=== PATIENT | male | born 1990 | race Caucasian/White ===

== ENCOUNTER 2020-11-27 22:25 | Emergency (ER) | payer OTHER, SELFPAY ==
[2020-11-27 22:27] VITALS: BP 132/86; PULSE 117; RESP 16; TEMP 36.2; O2SAT 97; BMI 27.8
--- NOTE | 2020-11-27 22:46 | ED.DCSUM_ITS ---
History of Present Illness Chief Complaint: General Illness Informant: Patient, Family Onset: Today Context: Gradual Onset Timing: Intermittent Current Severity: Mild Maximum Severity: Mild Narrative: The patient is a 30-year-old male who presents to the emergency department due to concern for car monoxide exposure. Patient states that he got home from work. He states that the furnace did not seem to be working. They had called someone out and found that there was a car monoxide leak. It was as high as 111 ppm at the furnace site. He had not been in the house for the bulk of the day. He states that he did feel mildly fatigued, but is unsure if it is just because he was very nervous. He had called poison control who recommended emergency department evaluation. Prior similar symptoms: No Recent Illness/Hospitalization: No Past Medical History - Allergies and Home Meds Allergies/Adverse Reactions: Allergies erythromycin base Allergy (Verified 11/27/20 22:29) Rash latex Allergy (Verified 11/27/20 22:29) Rash Primary Care Physician: Jhon Laird DO [STAFF PHYSICIAN] - Prior records reviewed: Yes Past Medical History: None Surgical History: noncontributory Review of Systems General: Denies: Chills, Fever, Sweats Eyes: Denies: Visual changes - bilaterally, Diplopia ENT: Denies: Rhinorrhea, Sore throat Cardiovascular: Denies: Chest pain, Palpitations Respiratory: Denies: Dyspnea, Cough, Dyspnea on exertion Gastrointestinal: Denies: Abdominal pain, Nausea, Vomiting, Diarrhea, Melena, Hematochezia Genitourinary: Denies: Dysuria, Hematuria, Frequency Musculoskeletal: Denies: Back pain, Extremity Pain Skin: Denies: Rash, Wounds Neurological: Denies: Headache, Weakness, Numbness Physical Exam Vital Signs/Narrative: Vital Signs Temp Pulse Resp BP Pulse Ox 11/27/20 22:27 97.2 F L 117 H 16 132/86 H 97 Inital Vital Signs reviewed: Yes General: Well nourished, Well developed, No Acute Distress Head: Normocephalic, Atraumatic Eyes: Perrl, EOMI ENT: Moist mucous membranes, No rhinorrhea Neck: Supple, Nontender Cardiovascular: Regular rate, Regular rhythm, No murmurs Respiratory: No distress, CTA bilaterally, Chest nontender Abdomen: Soft, Nontender, Nondistended, Normal bowel sounds Back: Nontender, Normal Inspection Extremities: Nontender, No edema Skin: Normal color, No rash Neurological: Alert, Oriented x3, Cranial nerves II-XII grossly intact, Normal Strength, Normal Sensation Psychological: Normal affect, Normal Mood Diagnostic/Tx/Re-eval - Medical Decision Making The patient was discussed promptly with poison control. They agreed with the 100% nonrebreather and obtaining serum carboxyhemoglobin levels. We did do the peripheral oximeter. The levels were 3. EKG was obtained which was unremarkable. Carboxyhemoglobin level was 2.4. The patient had already rec eived 1 hour of nonrebreather with a level that does not need to be treated. They are feeling fine. He has had no neurologic complaints. At this time, the patient is reassured and will be discharged home. All care was done in conjunction with poison control. Impression 1. Carbon monoxide exposure ED Disposition - Plan for ED Patient: Instructions: ED Carbon Monoxide Poisoning Referrals: Jhon Laird DO [STAFF PHYSICIAN] -
--- NOTE | 2020-11-27 23:22 | ED.RN ---
O2 sats 97%, CO2 3%. placed on NRB mask.
--- NOTE | 2020-11-27 23:26 | EKG12_ITS ---
Test Reason : DYSRYTHMIA Blood Pressure : / mmHG Vent. Rate : 086 BPM Atrial Rate : 086 BPM P-R Int : 172 ms QRS Dur : 084 ms QT Int : 352 ms P-R-T Axes : 064 046 037 degrees QTc Int : 421 ms Normal sinus rhythm Normal ECG Confirmed by KIRBY DUMAS, LEONOR ([id number]), fan mail editor GENO DAUGHERTY ([id number]) on 11/30/2020 12:18:21 PM Referred By: MANDI Confirmed By:CHAIM ORR MD
[2020-11-27 23:42] LABS: Carboxyhemoglobin Frac (CO) 2.4 % (0.0-1.5)
== END 2020-11-28 00:08 | disposition home or self-care (01) ==
PROVIDERS: Emergency Provider Emergency Medicine
DX: Z57.5 Occupational exposure to toxic agents in other industries (principal); Z88.1 Allergy status to other antibiotic agents; Z91.040 Latex allergy status
CPT/HCPCS: 36415; 82375; 93005; 99282

== ENCOUNTER 2022-02-02 18:33 | Emergency (ER) | payer BC, SELFPAY ==
[2022-02-02 18:34] VITALS: BP 121/74; PULSE 104; RESP 18; TEMP 37.6; O2SAT 98; BMI 29.1
[2022-02-02 19:21] LABS: Absolute Lymphocyte Count 0.75 X10^3/uL (0.83-4.51); Basophil# 0.02 X10^3/uL; Basophil% 0.3 % (0-1); Eosinophil# 0.01 X10^3/uL; Eosinophils% 0.1 % (0-5); Hematocrit 43.6 % (40-54); Hemoglobin 15.8 g/dL (13.0-16.5); Lymphocyte # 0.75 X10^3/ul (0.83-4.51); Lymphocyte % 10.4 % (19-41); Mean Corp Hgb Conc 36.2 g/dL (32-36); Mean Corpuscular Hgb 30.6 pg (27.0-32.0); Mean Corpuscular Volume 84.5 fL (80-94); Mean Platelet Vol. 11.9 fl (6.2-12.0); Monocyte# 0.36 X10^3/uL; NRBC Flagged by Analyzer 0 % (0-5); Neutrophil # 6.03 X10^3/uL (2.7-7.7); Neutrophil % 83.8 % (47-70); POSITIVE COUNT YES; Platelet Count 86 K/mm3 (150-450); RBC Distribution Width CV 11.8 % (11.6-14.6); RBC Distribution Width SD 35.8 fl (35.1-43.9); Red Blood Count 5.16 M/mm3 (4.6-6.2); White Blood Count 7.2 K/mm3 (4.4-11.0)
[2022-02-02 19:50] LABS: Differential Indicated SCAN CRITERIA MET
[2022-02-02 19:52] LABS: ALB/GLOB Ratio 1.2 RATIO (0.9-2.4); AST(SGOT) 17 U/L (15-37); Alanine Aminotransfer ALT/SGPT 47 U/L (16-61); Alkaline Phosphatase 75 U/L (45-117); Anion Gap 4 (5-15); BUN 7 mg/dL (7-18); BUN/Creat Ratio 6.9 RATIO (10-20); Calcium,Total 8.9 mg/dL (8.5-10.1); Chloride 106 mmol/L (98-107); Creatinine, Serum 1.02 mg/dL (0.70-1.30); EST Glomerular Filtration Rate 90 mL/min (>60); Est Glom Filt Rate - Afr Amer 109 mL/min (>60); Estimated Creatinine Clearance 115.17 ml/min; Globulin 3.3 g/dL (2.2-4.2); Glucose 121 mg/dL (74-106); Potassium 3.3 mmol/L (3.5-5.1); Protein, Total 7.3 g/dL (6.4-8.2); Sodium Level 135 mmol/L (136-145)
[2022-02-02 19:53] LABS: Platelet Estimate MOD DEC (ADEQ); Red Cell Morphology NORM C+C NORMAL (NORM C&C)
[2022-02-02 20:11] VITALS: TEMP 39.5
--- NOTE | 2022-02-02 20:45 | EDS_ITS ---
HPI History of Present Illness Chief Complaint: General Illness Informant: patient Narrative Narrative: Patient is a 31-year-old male with history of prior low back surgery presenting with fever, chills, myalgias and URI symptoms. Patient states he was feeling okay yesterday but had a little bit of a sore throat. He woke up today and felt he could not move because he felt so bad. He had aches, all of her myalgias and chills. His had a fever. Had some nasal congestion for the past 2 days. Said some nausea but no vomiting. His bowel movements been soft. He went to urgent care where he had a near syncopal episode and was sent to the emergency room for further evaluation. Patient notes his 3-year-old daughter has had a runny nose at home. No other known sick contacts. No other complaints at this time. PFSH PFSH Home Medications cetirizine [Zyrtec] 10 mg PO DAILY 02/02/22 [History Last Taken Unknown] Allergy/AdvReac Type Severity Reaction Status Date / Time erythromycin base Allergy Rash Verified 11/27/20 22:29 latex Allergy Rash Verified 11/27/20 22:29 Surgical History History of bladder surgery Previous back surgery Social History Smoking Status: Never smoker ROS ROS ED Constitutional Constitutional ED: Reports chills and fever(s) Eyes Eyes: Denies change in vision ENT ENT ED: Reports rhinorrhea, sore throat and other Details: Nasal congestion Cardiovascular Cardiovascular: Denies chest pain Respiratory/Chest Respiratory/Chest: Reports cough; Denies dyspnea Gastrointestinal Gastrointestinal: Reports diarrhea and nausea; Denies abdominal pain or vomiting Genitourinary Genitourinary ED: Denies dysuria or hematuria Musculoskeletal Musculoskeletal: Reports arthralgias and myalgias Integumentary Denies rash Neurologic Neurologic: Denies headache(s) or weakness Psychiatric Psychiatric: Denies depression EXAM Physical Exam Const Vital Signs: 02/02/22 18:34 02/02/22 20:08 02/02/22 20:11 Temperature 99.7 F H 103.1 F H Temperature Source Temporal Oral Pulse Rate 104 H Respiratory Rate 18 Respiratory Effort Normal Non-Labored Respiratory Pattern Normal Blood Pressure 121/74 H Blood Pressure Mean 89 Pulse Ox 98 Oxygen Delivery Method Room Air 02/02/22 22:13 Temperature 99.7 F H Temperature Source Oral Pulse Rate Respiratory Rate Respiratory Effort Respiratory Pattern Blood Pressure Blood Pressure Mean Pulse Ox Oxygen Delivery Method Positive well nourished and well developed General Appearance ED: well developed HEENT Reports moist mucous membranes HEENT Narrative: Mild pharyngeal injection. Normal-sized tonsils. No exudate appreciated. Uvula is midline. Eyes PERRL and EOMs intact bilaterally Eyes Narrative: No conjunctival injection appreciated Neck supple Neck Narrative: Mild cervical chain lymphadenopathy present General: Negative for tenderness Chest Wall inspection of chest normal Resp normal respiratory effort and clear to auscultation bilaterally Cardio regular rate, regular rhythm and no murmurs GI normal to inspection, nondistended, normoactive bowel sounds Back/Spine no CVA tenderness Extremity normal to inspection General Extremety ED: Negative for edema or tenderness General Extremity: Negative for edema Neuro oriented x3 Sensorium / Orientation: alert Psych mental status grossly normal Skin no rashes or lesions noted and no wounds MDM MDM MDM Narrative Medical decision making narrative: Patient evaluated for flulike illness as well as a near syncopal episode at urgent care. Patient is given IV fluids and IV Toradol. On reevaluation he does feel better. Lab work largely unremarkable. I suspect he has some type of viral illness given his physical exam and history of present illness. He is mildly hypokalemic and is given a dose of oral potassium in the emergency room. Is counseled on symptomatic treatment including lots of fluids and alternating Tylenol and ibuprofen as needed for pain. He does not have any meningeal signs. Otherwise is well-appearing. Clear breath sounds I do not think chest x-ray is indicated. Significantly improved on repeat evaluation. Discharged home with outpatient follow-up. Is given a work note for the next few days and counseled he needs to stay home until he is afebrile for 24 hours. Lab Data Attestation: I reviewed the patient's lab results. Labs: Laboratory Results - last 24 hr 02/02/22 02/02/22 18:20 18:20 WBC 7.2 RBC 5.16 Hgb 15.8 Hct 43.6 MCV 84.5 MCH 30.6 MCHC 36.2 H RDW Std Deviation 35.8 RDW Coeff of Yo 11.8 Plt Count 86 L MPV 11.9 Immature Gran % (Auto) 0.400 Neut % (Auto) 83.8 H Lymph % (Auto) 10.4 L [place] % (Auto) 5.0 Eos % (Auto) 0.1 Baso % (Auto) 0.3 Absolute Neuts (auto) 6.0 Absolute Lymphs (auto) 0.75 L Nucleated RBC % 0 Platelet Estimate MOD DEC RBC Morphology NORM C+C Sodium 135 L Potassium 3.3 L Chloride 106 Carbon Dioxide 25.0 Anion Gap 4 L BUN 7 Creatinine 1.02 Estim Creat Clear Calc 115.17 Est GFR (MDRD) Af Amer 109 Est GFR (MDRD) Non-Af 90 BUN/Creatinine Ratio 6.9 L Glucose 121 H Calcium 8.9 Total Bilirubin 0.80 AST 17 ALT 47 Alkaline Phosphatase 75 Total Protein 7.3 Albumin 4.0 Globulin 3.3 Albumin/Globulin Ratio 1.2 Discharge Plan Triage Chief Complaint: General Illness ED Provider: Li Lakhani Dx/Rx/DC Orders Clinical Impression: Acute febrile illness, URI (upper respiratory infection) Instructions: ED URI, Viral, No Abx (Adult) Prescriptions: No Action cetirizine [Zyrtec] 10 mg Tablet 10 mg PO DAILY RF: 0 Stand Alone Forms: ED Work / School Excuse Primary Care Provider: Care Physician,No Primary Referrals: Jonah Bruno MD [STAFF PHYSICIAN] - Care Physician,No Primary [Primary Care Provider] - Activity Restrictions/Additional Instructions: Drink lots of fluids. Alternate Tylenol and ibuprofen. Return the emergency room if you have worsening symptoms especially headache, neck stiffness, rash or fever that will not resolve/improve with [id number] medicines. He may take [id number] Tylenol Cold and flu for your symptoms as well. Disposition Disposition: Home, Self Care Discharge Date/Time: 02/02/22 23:03
[2022-02-02] MEDS: Ketorolac 15 MG/ML Vial IV (20:53)
[2022-02-02] MEDS: 0.9% Normal Saline 1,000 ML 999 ML IV (20:54)
[2022-02-02] MEDS: Potassium Chloride Oral Tablet 20 MEQ 40 MEQ PO (22:02)
[2022-02-02 22:13] VITALS: TEMP 37.6
== END 2022-02-02 23:03 | disposition home or self-care (01) ==
PROVIDERS: Emergency Provider Emergency Medicine; Visit Provider Emergency Medicine
DX: J06.9 Acute upper respiratory infection, unspecified (principal); M79.10 Myalgia, unspecified site; R50.9 Fever, unspecified
CPT/HCPCS: 80053; 85025; 87428; 87880; 96361; 96374; 99283

== ENCOUNTER 2024-06-12 16:53 | Emergency (ER) | payer BC, SELFPAY ==
[2024-06-12 16:54] VITALS: BP 143/101; PULSE 84; RESP 17; TEMP 36.1; O2SAT 96; BMI 27.4
--- NOTE | 2024-06-12 17:33 | CT_ITS ---
EXAM: CT ABDOMEN AND PELVIS WITHOUT INTRAVENOUS CONTRAST CLINICAL INDICATION: hx of kidney stones TECHNIQUE: Helically acquired images were obtained of the abdomen and pelvis without intravenous contrast. This CT exam was performed using one or more of the following dose reduction techniques: automated exposure control, adjustment of the mA and/or kV according to patient size, and/or use of iterative reconstruction technique. COMPARISON: No relevant prior studies available. FINDINGS: LOWER THORAX: Unremarkable. Lung bases are clear. No cardiomegaly. No significant pericardial effusion. ABDOMEN: LIVER: Unremarkable. Homogeneous. GALLBLADDER AND BILE DUCTS: Unremarkable. No calcified gallstones. No gallbladder distention or wall edema. No intra- or extrahepatic biliary ductal dilation. PANCREAS: Unremarkable. No focal cystic mass. SPLEEN: Unremarkable. Normal size without focal cystic or solid mass. ADRENALS: Unremarkable. No nodules. KIDNEYS AND URETERS: There are nonobstructing calyceal stones bilaterally. Normal renal size and position. STOMACH AND BOWEL: Unremarkable. No stomach or bowel distention. No focal inflammatory change. PELVIS: APPENDIX: No evidence of acute appendicitis. BLADDER: Unremarkable. REPRODUCTIVE: Unremarkable as visualized. No mass. ABDOMEN and PELVIS: INTRAPERITONEAL SPACE: Unremarkable. No ascites or other fluid collection. No free air. BONES/JOINTS: Unremarkable. No suspicious lytic or blastic abnormality. SOFT TISSUES: Unremarkable. No discrete abdominal or pelvic wall hernia. VASCULATURE: Unremarkable. Abdominal aorta is non-dilated. LYMPH NODES: Unremarkable. No enlarged lymph nodes. 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 No obvious ureteral stone is identified. There are bilateral nonobstructing calyceal stones present. Electronically Signed: Amadeo Jones MD at 18:39 EDT ,
[2024-06-12] MEDS: 0.9% Normal Saline (1000mL) 1,000 ML 999 ML IV (17:47)
[2024-06-12 17:48] LABS: Absolute Lymphocyte Count 1.69 X10^3/uL (0.83-4.51); Absolute Neutrophil Count 3.4 X10^3/uL (2.0-7.7); Basophil# 0.04 X10^3/uL; Basophil% 0.7 % (0-1); Eosinophil# 0.21 X10^3/uL; Eosinophils% 3.7 % (0-5); Hematocrit 46.7 % (40-54); Hemoglobin 16.5 g/dL (13.0-16.5); Lymphocyte # 1.69 X10^3/ul (0.83-4.51); Lymphocyte % 29.8 % (19-41); Mean Corp Hgb Conc 35.3 g/dL (32-36); Mean Corpuscular Hgb 30.8 pg (27.0-32.0); Mean Corpuscular Volume 87.1 fL (80-94); Monocyte# 0.34 X10^3/uL; NRBC Flagged by Analyzer 0 % (0-5); Neutrophil # 3.39 X10^3/uL (2.7-7.7); Neutrophil % 59.6 % (47-70); Platelet Count 112 K/mm3 (150-450); RBC Distribution Width CV 12.1 % (11.6-14.6); RBC Distribution Width SD 38.5 fl (35.1-43.9); Red Blood Count 5.36 M/mm3 (4.6-6.2); White Blood Count 5.7 K/mm3 (4.4-11.0)
[2024-06-12 17:49] LABS: Bacteria 0 SEEN /hpf (None Seen); Mucous, Urine 0 SEEN /hpf (<or=2+); Red Blood Cells-Urine 0 SEEN /hpf (0-5); Squamous Epithelial Cells - UA 0 SEEN /hpf (0-5); White Blood Cells 0 SEEN /hpf (0-5)
[2024-06-12 17:59] LABS: Color, Urine Yellow (Yellow); Glucose, Dipstick Normal (Normal); Ketone-Dipstick Negative (Negative); Leukocyte Esterase-Dipstick Negative /ul (Negative); Nitrite-Dipstick Negative (Negative); Occult Blood-Urine Negative /ul (Negative); Protein-Dipstick Negative (Negative); Specific Gravity, Urine 1.015 (1.002-1.030); Urine Bilirubin Dipstick Negative (Negative); Urine Clarity Clear (Clear); Urine Urobilinogen Normal (Normal)
[2024-06-12 18:12] LABS: ALB/GLOB Ratio 1.3 RATIO (0.9-2.4); AST(SGOT) 19 U/L (15-37); Alanine Aminotransfer ALT/SGPT 43 U/L (16-61); Albumin, Serum 4.2 g/dL (3.2-5.0); Alkaline Phosphatase 78 U/L (45-117); Anion Gap 5 (5-15); BUN 11 mg/dL (7-18); BUN/Creat Ratio 12.1 RATIO (10-20); Calcium,Total 9.3 mg/dL (8.5-10.1); Chloride 107 mmol/L (98-107); Creatinine, Serum 0.91 mg/dL (0.70-1.30); EST Glomerular Filtration Rate 101 mL/min (>60); Est Glom Filt Rate - Afr Amer 122 mL/min (>60); Estimated Creatinine Clearance 125.54 ml/min; Globulin 3.3 g/dL (2.2-4.2); Glucose 95 mg/dL (74-106); Lipase 30 U/L (13-75); Potassium 3.5 mmol/L (3.5-5.1); Protein, Total 7.5 g/dL (6.4-8.2); Sodium Level 139 mmol/L (136-145)
[2024-06-12 18:54] VITALS: BP 138/99; PULSE 81; RESP 16; O2SAT 100
[2024-06-12 20:00] VITALS: BP 122/79; PULSE 70; RESP 16; O2SAT 99
[2024-06-12 20:13] VITALS: BP 122/79; PULSE 68; RESP 19; TEMP 36.6; O2SAT 99
--- NOTE | 2024-06-12 20:13 | EDS_ITS ---
HPI History of Present Illness Chief Complaint: Flank Pain Narrative Narrative: Patient is a 34-year-old male with past medical history of nephrolithiasis, urolithiasis who presents to the emergency department with a concern for a kidney stone. According to the patient he states that he has been dealing with some discomfort now for approximately 2 weeks he states that he felt like he had a kidney stone and figured that it passed on its own. He states that he has been trying to hydrate orally with plenty of fluids. Patient states that he recently has had some chills and shaking and noted that he had some painful urination prompting him to come here for further evaluation management. Patient states that he has had several kidney stones in the past he states that he has passed some on his own and noted that he had to have surgery in the past to have some removed as well. Patient denies any recent sick contacts. He states that this does feel like he has another kidney stone. PFSH PFS Medical History Hx of renal calculi Home Medications ?Medication ?Instructions ?Recorded ?Last Taken ?Type cetirizine 10 mg tablet (Zyrtec) 10 mg PO DAILY PRN allergy symptoms 02/02/22 Unknown History Allergy/AdvReac Type Severity Reaction Status Date / Time erythromycin base Allergy Rash Verified 06/12/24 16:54 latex Allergy Rash Verified 06/12/24 16:54 Surgical History Previous back surgery History of bladder surgery Social History Smoking Status: Never smoker ROS ROS ED ROS Narrative Constitutional: Complains of chills denies any fevers, headaches, lightheadedness, dizziness Cardiovascular: Denies chest pain or palpitations Respiratory: Denies coughing wheezing shortness of breath Abdomen: Complains of some generalized abdominal discomfort and denies any vomiting or diarrhea : States that he does have some pain with urination denies any increased frequency of urinating denies blood in his urine Neurological: Denies any numbness, weakness, tingling Musculoskeletal: Complains of some bilateral back discomfort Skin: Denies rashes or lesions EXAM Physical Exam Narrative Exam Narrative: General: Patient was lying in bed rest comfortably did not appear to be in acute distress Head: Atraumatic, normocephalic Eyes: PERRL bilaterally, EOMI bilaterally, no conjunctival injection noted Neck: Soft, supple, trach midline Cardiovascular: Regular rate and rhythm no murmurs gallops rubs noted Respiratory: Clear to auscultation bilaterally Abdomen: Soft, nondistended, no tenderness palpation, bowel sounds present x 4 Musculoskeletal: No CVA tenderness noted on exam, no midline tenderness palpation thoracolumbar spine Extremities: +5/5 strength noted in the bilateral upper and lower extremities, no pedal edema on exam Neurological: Patient was following commands knew that he was at [facility] year is 2023 Skin: Warm, dry, intact Const Vital Signs: 06/12/24 16:54 06/12/24 18:54 06/12/24 20:00 Temperature 96.9 F L Temperature Source Temporal Pulse Rate 84 81 70 Respiratory Rate 17 16 16 Blood Pressure 143/101 H 138/99 H 122/79 H Blood Pressure Mean 115 112 93 Pulse Ox 96 100 99 Oxygen Delivery Method Room Air Room Air Room Air MDM MDM MDM Narrative Medical decision making narrative: Patient is a 34-year-old male who presented to the emergency department with chief complaint of concern for kidney stone. Patient will have a workup performed here on the differential diagnose includes but not limited to urolithiasis, nephrolithiasis, UTI, pyelonephritis. Once workup is obtained reviewed he will be reevaluated. Patient was offered pain medication and states that he does not need anything for pain or nausea at this point in time. Patient's CBC reviewed and showed no evidence of leukocytosis white blood cell count normal at 5.7, hemoglobin stable at 16.5, platelet count was noted to be 112 chronically has low platelets based on previous blood draws. Patient sodium normal at 139, potassium normal at 3.5, creatinine normal at 0.91. Patient's AST and ALT were 19 and 43 respectively. Patient lipase normal at 30. Patient's urinalysis did not reveal any evidence of infection no blood noted. Patient CT abdomen pelvis without IV contrast reviewed and showed a duplicated left collecting system with mild dilation of the left lower pole. No obvious ureteral stone is identified there are bilateral nonobstructing calyceal stones present. On reevaluation of the patient he is feeling better. Patient's results were discussed with him he would like to go home at this point time. Patient states that he does have a follow-up appointment with urology on Monday. Patient was advised to follow-up with them and also follow-up with his primary care physician outpatient setting. He was encouraged to return with worsening symptoms or other concerns. Patient and family member at bedside are agreeable with this plan all question concerns answered he is discharged home in stable condition. Lab Data Labs: Laboratory Results - last 24 hr 06/12/24 06/12/24 17:08 17:45 WBC 5.7 RBC 5.36 Hgb 16.5 Hct 46.7 MCV 87.1 MCH 30.8 MCHC 35.3 RDW Std Deviation 38.5 RDW Coeff of Yo 12.1 Plt Count 112 L MPV 13.0 H Immature Gran % (Auto) 0.200 Neut % (Auto) 59.6 Lymph % (Auto) 29.8 [place] % (Auto) 6.0 Eos % (Auto) 3.7 Baso % (Auto) 0.7 Absolute Neuts (auto) 3.4 Absolute Lymphs (auto) 1.69 Nucleated RBC % 0 Sodium 139 Potassium 3.5 Chloride 107 Carbon Dioxide 27.0 Anion Gap 5 BUN 11 Creatinine 0.91 Estim Creat Clear Calc 125.54 Est GFR (MDRD) Af Amer 122 Est GFR (MDRD) Non-Af 101 BUN/Creatinine Ratio 12.1 Glucose 95 Calcium 9.3 Total Bilirubin 0.40 AST 19 ALT 43 Alkaline Phosphatase 78 Total Protein 7.5 Albumin 4.2 Globulin 3.3 Albumin/Globulin Ratio 1.3 Lipase 30 Urine Color Yellow Urine Clarity Clear Urine pH 6.0 Ur Specific [place] 1.015 Urine Protein Negative Urine Glucose (UA) Normal Urine Ketones Negative Urine Occult Blood Negative Urine Nitrite Negative Urine Bilirubin Negative Urine Urobilinogen Normal Ur Leukocyte Esterase Negative Urine RBC 0 SEEN Urine WBC 0 SEEN Ur Squamous Epith Cells 0 SEEN Urine Bacteria 0 SEEN Urine Mucus 0 SEEN Radiography Diagnostic Testing: Clinical Impression(s) from Imaging Studies Abdomen/Pelvis CT 06/12/24 17:33 IMPRESSION: 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 No obvious ureteral stone is identified. There are bilateral nonobstructing calyceal stones present. Electronically Signed: Amadeo Jones MD at 18:39 EDT , Discharge Plan Triage Chief Complaint: Flank Pain ED Provider: [place] Dx/Rx/DC Orders Clinical Impression: Flank pain with history of urolithiasis Prescriptions: No Action cetirizine [Zyrtec] 10 mg Tablet 10 mg PO DAILY PRN (Reason: allergy symptoms) Primary Care Provider: Calli Santamaria Referrals: Calli Santamaria DO [Primary Care Provider] - Activity Restrictions/Additional Instructions: Ensure adequate hydration. Follow-up with your urologist on Monday at your scheduled appointment. Follow-up with your primary care physician outpatient setting. Return with worsening symptoms or other concerns. Print Language: Macedonian Disposition Disposition: Home, Self Care
== END 2024-06-12 20:39 | disposition home or self-care (01) ==
PROVIDERS: Emergency Provider Emergency Medicine; PCP Internal Medicine; Visit Provider Emergency Medicine
DX: R10.9 Unspecified abdominal pain (principal)
CPT/HCPCS: 74176; 80053; 81001; 83690; 85025; 96360; 99283; J7030; A4216

== ENCOUNTER 2024-12-13 09:21 | Outpatient (RCR) | payer BC, SELFPAY | END 2024-12-13 19:00 | disposition home or self-care (01) | LOC: PT 09:21 | PROVIDERS: PCP Internal Medicine | DX: M25.561 Pain in right knee (principal) ==

== ENCOUNTER → 2025-09-23 | Outpatient (CLI) | payer BC, SELFPAY ==
--- OUTSIDE RECORDS SUMMARY | 2025-09-23 09:29 | XMS RPT_ITS | CCD ---
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 removed at age [age] PMH - PAST MEDICAL HISTORY OF Hernia Repair PMH - PAST MEDICAL HISTORY OF 03/01 T AND A PAST SURGICAL HISTORY Procedure Laterality Date ADENOIDECTOMY PRIMARY Adenoidectomy PAST SURGICAL HISTORY OF BLADDER RECONSTRUCTIVE SURG TONSILLECTOMY PRIMARY/SECONDARY Tonsillectomy ALLERGIES Erythromycin, Erythromycin Base, Latex, Nickel, Azithromycin, and Tree Nut MEDICATIONS No prescriptions on file. FAMILY HISTORY Problem Relation Age of Onset Cancer Maternal Grandmother liver and kidney Hearing Loss Paternal Grandmother Hearing Loss Father Heart Paternal Grandmother [place] Heart Paternal Grandfather [place] Social History Tobacco Use Smoking status: Never Passive exposure: Past Smokeless tobacco: Never Substance Use Topics Alcohol use: No Drug use: No Review of Systems Constitutional: Positive for fever and malaise/fatigue. Negative for chills. HENT: Positive for congestion and sore throat. Negative for ear discharge, ear pain and nosebleeds. Eyes: Positive for discharge and redness. Negative for blurred vision, double vision, photophobia and pain. Respiratory: Positive for cough. Negative for shortness of breath and wheezing. Musculoskeletal: Negative for neck pain. Skin: Negative for itching and rash. Neurological: Negative for headaches. Objective Blood pressure 122/78, pulse 96, temperature 37.5 ?C (99.5 ?F), temperature source Tympanic, resp. rate 16, weight 91.1 kg (200 lb 13.4 oz), SpO2 97%. Physical Exam Constitutional: General: He is not in acute distress. Appearance: He is not toxic-appearing or diaphoretic. HENT: Head: Normocephalic and atraumatic. Right Ear: Hearing, tympanic membrane, ear canal and external ear normal. Left Ear: Hearing, tympanic membrane, ear canal and external ear normal. Nose: Nose normal. No mucosal edema. Mouth/Throat: Lips: [place]. Pharynx: Uvula midline. Posterior oropharyngeal erythema (uvulitis.) present. No pharyngeal swelling, oropharyngeal exudate or uvula swelling. Eyes: General: Lids are normal. No scleral icterus. Right eye: No discharge. Left eye: Discharge present. Conjunctiva/sclera: Left eye: Left conjunctiva is injected. Exudate present. Pupils: Pupils are equal, round, and reactive to light. Neck: Trachea: Trachea normal. Cardiovascular: Rate and Rhythm: Normal rate and regular rhythm. Heart sounds: Normal heart sounds. Pulmonary: Effort: Pulmonary effort is normal. Breath sounds: Normal breath sounds. Musculoskeletal: Cervical back: Normal range of motion and neck supple. Lymphadenopathy: Cervical: Cervical adenopathy present. Right cervical: Superficial cervical adenopathy present. Left cervical: Superficial cervical adenopathy present. Comments: No cervical lymphadenopathy bilaterally Skin: Findings: No rash. Neurological: Mental Status: He is alert and oriented to person, place, and time. ASSESSMENT/PLAN: 1. Community acquired pneumonia, unspecified laterality - ICD9: 486, ICD10: J18.9 (primary diagnosis) Start amox, if s/s worsen or continue fill doxy atb - Discussed supportive care - Limit exposure to smoke and other inhaled irritants - Discussed possible red flags and when to seek medical attention - Follow up in 3-5 days or sooner if no better or worse -If you experience chest pain/shortness of breath go to ER - AMOXICILLIN 500 MG CAPSULE - DOXYCYCLINE MONOHYDRATE 100 MG TABLET 2. Acute cough - ICD9: 786.2, ICD10: R05.1 - XR CHEST 2V FRONTAL/LAT IMPRESSION: Mild opacities in the lingula or right middle lobe, pulmonary infiltrates versus atelectasis. Consider follow-up. Dictated by : WILLIAM MORRIS MD 3. So (more content not included)... [facility] STREP A MOLECULAR (POC)on Procedural Control Valid [facility] Strep A (POCT) Negative Negative [facility] ic XR CHEST 2V FRONTAL/LATon XR CHEST 2V FRONTAL/LAT * * *Final Report* * * DATE OF EXAM: Oct 01 2024 12:31PM WOX 5291 - XR CHEST 2V FRONTAL/LAT / PROCEDURE REASON: Acute cough * * * * Physician Interpretation * * * * EXAMINATION: CHEST RADIOGRAPH (2 VIEW FRONTAL and LATERAL) CLINICAL HISTORY: Acute cough MQ: XC2_6 EXAM DATE/TIME: 10/01/2024 12:31 PM COMPARISON: Chest x-ray on 07/29/2024 RESULT: Lines, tubes, and devices: None. Lungs and pleura: Mild patchy opacities seen in the lingula or right middle lobe, only appreciated on lateral view. No lung mass. No pleural effusion. No pneumothorax. Cardiomediastinal silhouette: Normal cardiomediastinal silhouette. Bones and soft tissues: Unremarkable. IMPRESSION: Mild opacities in the lingula or right middle lobe, pulmonary infiltrates versus atelectasis. Consider follow-up. [facility] Transcribe Date/Time: Oct 01 2024 12:35P Dictated by : WILLIAM MORRIS MD This examination was interpreted and the report reviewed and electronically signed by: WILLIAM MORRIS MD on Oct 01 2024 12:36PM EST [id number] [facility] XR Chest PA and Lateralon IMPRESSION: Mild opacities in the lingula or right middle lobe, pulmonary infiltrates versus atelectasis. Consider follow-up. Machinist Set Up: [facility] Transcribe Date/Time: Oct 01 2024 12:35P Dictated by : WILLIAM MORRIS MD This examination was interpreted and the report reviewed and electronically signed by: WILLIAM MORRIS MD on Oct 01 2024 12:36PM EST DIVISION OF RADIOLOGY * * *Final Report* * * DATE OF EXAM: Oct 01 2024 12:31PM WOX 5291 - XR CHEST 2V FRONTAL/LAT / PROCEDURE REASON: Acute cough * * * * Physician Interpretation * * * * EXAMINATION: CHEST RADIOGRAPH (2 VIEW FRONTAL & LATERAL) CLINICAL HISTORY: Acute cough MQ: XC2_6 EXAM DATE/TIME: 10/01/2024 12:31 PM COMPARISON: Chest x-ray on 07/29/2024 RESULT: Lines, tubes, and devices: None. Lungs and pleura: Mild patchy opacities seen in the lingula or right middle lobe, only appreciated on lateral view. No lung mass. No pleural effusion. No pneumothorax. Cardiomediastinal silhouette: Normal cardiomediastinal silhouette. Bones and soft tissues: Unremarkable. DIVISION OF RADIOLOGY Provider, Arianna Guzman - 10/01/2024 * * *Final Report* * * DATE OF EXAM: Oct 01 2024 12:31PM WOX 5291 - XR CHEST 2V FRONTAL/LAT / PROCEDURE REASON: Acute cough * * * * Physician Interpretation * * * * EXAMINATION: CHEST RADIOGRAPH (2 VIEW FRONTAL & LATERAL) CLINICAL HISTORY: Acute cough MQ: XC2_6 EXAM DATE/TIME: 10/01/2024 12:31 PM COMPARISON: Chest x-ray on 07/29/2024 RESULT: Lines, tubes, and devices: None. Lungs and pleura: Mild patchy opacities seen in the lingula or right middle lobe, only appreciated on lateral view. No lung mass. No pleural effusion. No pneumothorax. Cardiomediastinal silhouette: Normal cardiomediastinal silhouette. Bones and soft tissues: Unremarkable. IMPRESSION IMPRESSION: Mild opacities in the lingula or right middle lobe, pulmonary infiltrates versus atelectasis. Consider follow-up. Machinist Set Up: [facility] Transcribe Date/Time: Oct 01 2024 12:35P Dictated by : WILLIAM MORRIS MD This examination was interpreted and the report reviewed and electronically signed by: WILLIAM MORRIS MD on Oct 01 2024 12:36PM EST [facility] Radiology Study observation (narrative) [facility] XR Chest PA and LateralOrder ed By: Cc Provider on 10-01-2024 [facility] 07[facility]30-20[facility]) KINGSLEY LUIS ([id number]) 1990 M Date Time Provider Department 07/30/[address] [facility] During your visit today, we recorded the following information about you: Pearl Rincon APRN.VEL 07/30/2024 7:19 AM Signed Negative for COVID, flu, RSV. Please notify. Melissa Park MA 07/30/2024 8:03 AM Signed Unable to reach patient. Left VM to return call to office. Please read below and advise. Melissa Park MA (Please see Spouse (1) AND child (2) results also) Will need documentation for Spouse in regards to results. Irene Barlow RN 07/30/2024 8:14 AM Signed Spouse calls with patient and notified of results with verbalized understanding. Irene Barlow RN Allergies As of Date: 07/30/2024 Noted Allergy Reaction ERYTHROMYCIN 04/21/2020 2 - Rash ERYTHROMYCIN BASE 11/27/2020 2 - Rash LATEX 03/08/2006 2 - Rash NICKEL 05/04/2018 2 - Rash Comments: GI upset when eating canned foods AZITHROMYCIN 04/23/2016 2 - Rash TREE NUT 05/04/2018 2 - Rash 7 - Swelling Date Reviewed: 07/29/2024 Reviewed by: Rach Paredes MA - Fully Assessed Reason for Visit: Results [95] Prescriptions as of 07/30/2024 - doxycycline (VIBRA-TABS) 100 mg tablet Take 1 tablet by mouth two times a day for 7 days. Problem List As Of Date: 07/30/2024 (None) Encounter Status:Closed by IRENE BARLOW on 07/30/24 [facility] CNOVon 07-29-2024 CNOV Office Visit (UCWSTR ) KINGSLEY LUIS ([id number]) 1990 M Date Time Provider Department 07/29/24 5:00 PM [address]ANT [facility] During your visit today, we recorded the following information about you: Temperature Pulse Respiration Blood pressure 99.6 degrees 94/minute 21/minute 110/80 Weight 90 kg Pearl Rincon APRN.[employer] 07/29/2024 6:42 PM Signed CC: Patient presents with: Cough: Chest congestion, vomiting, nausea, diarrhea, CERVANTES, fever x 5 days HPI: Kingsley Luis is a 34 year old male who presents to the office with complaint of chest congestion, head congestion, cough, nonproductive, and fever for 5 days. Symptoms are staying the same. Associated symptoms includes nausea, vomiting , and diarrhea. Denies ear pain. Treatments tried include nothing so far. with no relief of symptoms. Sick contacts: unknown. History of asthma, frequent episodes of bronchitis, chronic bronchitis, bronchiectasis or COPD: No Smoker: No Seasonal/environmental allergies: No The ROS is otherwise negative. The patient's pmh, medications, allergies, and past visits are reviewed. PHYSICAL EXAM: BP 110/80 Pulse 94 Temp 37.6 ?C (99.6 ?F) Resp 21 Wt 90 kg (198 lb 6.6 oz) SpO2 97% General appearance: alert, cooperative, pleasant, in no acute distress Head: Normocephalic Eyes: EOM's intact, conjunctiva pink and moist, no icterus, sclera white, non-injected Ears: Right ear: External ear/canal- Normal, TM - clear with good landmarks. Left ear: External ear/canal- Normal, TM - clear with good landmarks Oropharynx:mild erythema, without exudates present Heart: Negative. RRR without obvious murmur, gallop, or rubs. No ectopy. 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 PMH - PAST MEDICAL HISTORY OF Cyst over right eye removed at age [age] PMH - PAST MEDICAL HISTORY OF Hernia Repair PMH - PAST MEDICAL HISTORY OF 03/01 T AND A PAST SURGICAL HISTORY Procedure Laterality Date ADENOIDECTOMY PRIMARY Adenoidectomy PAST SURGICAL HISTORY OF BLADDER RECONSTRUCTIVE SURG TONSILLECTOMY PRIMARY/SECONDARY Tonsillectomy ALLERGIES Erythromycin, Erythromycin Base, Latex, Nickel, Azithromycin, and Tree Nut MEDICATIONS No prescriptions on file. FAMILY HISTORY Problem Relation Age of Onset Cancer Maternal Grandmother liver and kidney Hearing Loss Paternal Grandmother Hearing Loss Father Heart Paternal Grandmother [place] Heart Paternal Grandfather [place] Social History Tobacco Use Smoking status: Never Passive exposure: Past Smokeless tobacco: Never Substance Use Topics Alcohol use: No Drug use: No ASSESSMENT/PLAN: 1. Acute cough - ICD9: 786.2, ICD10: R05.1 (primary diagnosis) - XR CHEST 2V FRONTAL/LAT - neg 2. URI, acute - ICD9: 465.9, ICD10: J06.9 - COVID AND INFLUENZA A/B AND RSV PCR, ROUTINE 3. Respiratory infection - ICD9: 519.8, ICD10: J98.8 - DOXYCYCLINE HYCLATE 100 MG TABLET Prescription instructions reviewed with patient as applicable. Potential red flag symptoms discussed with the patient. Reviewed appropriate action plan to take if red flag symptoms occur. Patient agreeable to treatment plan. Pearl Rincon APRN.[employer] Allergies As of Date: 07/29/2024 Noted Allergy Reaction ERYTHROMYCIN 04/21/2020 2 - Rash ERYTHROMYCIN BASE 11/27/2020 2 - Rash LATEX 03/08/2006 2 - Rash NICKEL 05/04/2018 2 - Rash Comments: GI upset when eating canned foods AZITHROMYCIN 04/23/2016 2 - Rash TREE NUT 05/04/2018 2 - Rash 7 - Swelling Date Reviewed: 07/29/2024 Reviewed by: Rach Paredes MA - Fully Assessed Reason for Visit: Cough [28] Cmt: Chest congestion, vomiting, nausea, diarrhea, CERVANTES, fever x 5 days Primary Visit Diagnosis:Acute cough [R05.1] Other Visit Diagnoses:URI, acute [J06.9] Respiratory infection [J98.8] Order(s):XR CHEST 2V FRONTAL/LAT [[id number]] Order #: [id number] FUTURE COVID AND INFLUENZA A/B AND RSV PCR, ROUTINE [[id number]] Order #: [id number]. #:[id number] doxycycline (VIBRA-TABS) 100 mg tabletTake 1 tablet by mouth two times a day for 7 days.Disp: 14 tabletRfl: 0 Prescriptions as of 07/29/2024 - doxycycline (VIBRA-TABS) 100 mg tablet Take 1 tablet by mouth two times a day for 7 days. Problem List As Of Date: 07/29/2024 (None) Prescriptions ordered this encounter Disp Refills Start End DOXYCYCLINE HYCLATE 100 MG TABLET 14 t* 0 07/29/2024 08/05/2024 Route: ORAL Sig: Take 1 tablet by mouth two times a day for 7 days. Letter Text Encounter Numbe (more content not included)... [facility] COVID AND INFLUENZA A/B AND RSV PCR, ROUTINEon 07-29-2024 SARS-CoV-2 (COVID-19) RNA NIECY+probe Ql (Unsp spec) SARS-COV-2 (AGENT OF COVID-19) RNA: Not detected INFLUENZA A RNA: Not detected INFLUENZA B RNA: Not detected RESPIRATORY SYNCYTIAL VIRUS (RSV) RNA: Not detected [facility] Comment on above: Performed By: #### C VFLRS #### [facility] CLIA [id number] [address] [place] [address] [place] XR CHEST 2V FRONTAL/LATon XR CHEST 2V FRONTAL/LAT * * *Final Report* * * DATE OF EXAM: Jul 29 2024 5:37PM WOX 5291 - XR CHEST 2V FRONTAL/LAT / PROCEDURE REASON: Acute cough * * * * Physician Interpretation * * * * EXAMINATION: CHEST RADIOGRAPH (2 VIEW FRONTAL and LATERAL) CLINICAL HISTORY: Acute cough MQ: XC2_6 EXAM DATE/TIME: 07/29/2024 5:37 PM COMPARISON: 11/14/2007 RESULT: Lines, tubes, and devices: None. Lungs and pleura: There is no focal lobar consolidation, pleural effusion, pulmonary edema or pneumothorax. Cardiomediastinal silhouette: Normal cardiomediastinal silhouette. Mediastinal and hilar contours are stable when compared to the prior study. Bones and soft tissues: Unremarkable. IMPRESSION: No acute radiographic abnormality. Machinist Set Up: [facility] Transcribe Date/Time: Jul 29 2024 6:38P Dictated by : KELSY FERREIRA MD This examination was interpreted and the report reviewed and electronically signed by: KELSY FERREIRA MD on Jul 29 2024 6:39PM EST [id number] [facility] XR Chest PA and Lateralon IMPRESSION: No acute radiographic abnormality. Machinist Set Up: [facility] Transcribe Date/Time: Jul 29 2024 6:38P Dictated by : KELSY FERREIRA MD This examination was interpreted and the report reviewed and electronically signed by: KELSY FERREIRA MD on Jul 29 2024 6:39PM [facility] DIVISION OF RADIOLOGY * * *Final Report* * * DATE OF EXAM: Jul 29 2024 5:37PM WOX 5291 - XR CHEST 2V FRONTAL/LAT / PROCEDURE REASON: Acute cough * * * * Physician Interpretation * * * * EXAMINATION: CHEST RADIOGRAPH (2 VIEW FRONTAL & LATERAL) CLINICAL HISTORY: Acute cough MQ: XC2_6 EXAM DATE/TIME: 07/29/2024 5:37 PM COMPARISON: 11/14/2007 RESULT: Lines, tubes, and devices: None. Lungs and pleura: There is no focal lobar consolidation, pleural effusion, pulmonary edema or pneumothorax. Cardiomediastinal silhouette: Normal cardiomediastinal silhouette. Mediastinal and hilar contours are stable when compared to the prior study. Bones and soft tissues: Unremarkable. DIVISION OF RADIOLOGY Provider, [facility] - 07/29/2024 * * *Final Report* * * DATE OF EXAM: Jul 29 2024 5:37PM WOX 5291 - XR CHEST 2V FRONTAL/LAT / PROCEDURE REASON: Acute cough * * * * Physician Interpretation * * * * EXAMINATION: CHEST RADIOGRAPH (2 VIEW FRONTAL & LATERAL) CLINICAL HISTORY: Acute cough MQ: XC2_6 EXAM DATE/TIME: 07/29/2024 5:37 PM COMPARISON: 11/14/2007 RESULT: Lines, tubes, and devices: None. Lungs and pleura: There is no focal lobar consolidation, pleural effusion, pulmonary edema or pneumothorax. Cardiomediastinal silhouette: Normal cardiomediastinal silhouette. Mediastinal and hilar contours are stable when compared to the prior study. Bones and soft tissues: Unremarkable. IMPRESSION IMPRESSION: No acute radiographic abnormality. Machinist Set Up: [facility] Transcribe Date/Time: Jul 29 2024 6:38P Dictated by : KELSY FERREIRA MD This examination was interpreted and the report reviewed and electronically signed by: KELSY FERREIRA MD on Jul 29 2024 6:39PM EST [facility] Radiology Study observation (narrative) [facility] XR Chest PA and LateralOrder ed By: Ccf Provider on 07-29-2024 [facility] ic URINALYSISon 06-17-2024 BACTERIA, URINE None Seen Normal None Seen [facility] Comment on above: Order Comment: Micro scopic examination is performed on all urinalysis samples and only positive findings are reported. The test for blood on the chemical analytic portion of urinalysis may also be positive due to hemoglobinuria and myoglobinuria and if red blood cells are present they are quantified by microscopic examination. Performed By: #### 4 [id number] #### [facility] [address] [place], [place] [id number] Edvin Castellanos M.D. [id number] BILIRUBIN, URINE Negative Normal Negative [facility] Comment on above: Order Comment: Micro scopic examination is performed on all urinalysis samples and only positive findings are reported. The test for blood on the chemical analytic portion of urinalysis may also be positive due to hemoglobinuria and myoglobinuria and if red blood cells are present they are quantified by microscopic examination. Performed By: #### 4 [id number] #### [facility] [address] [place] [address] Edvin Castellanos M.D. [id number] BLOOD, URINE Negative Normal Negative [facility] Comment on above: Order Comment: Micro scopic examination is performed on all urinalysis samples and only positive findings are reported. The test for blood on the chemical analytic portion of urinalysis may also be positive due to hemoglobinuria and myoglobinuria and if red blood cells are present they are quantified by microscopic examination. Performed By: #### 4 [id number] #### [facility] [address] [place], [place] [id number] Edvin Castellanos M.D. [id number] Clarity (U) Clear Normal Clear [facility] Comment on above: Order Comment: Micro scopic examination is performed on all urinalysis samples and only positive findings are reported. The test for blood on the chemical analytic portion of urinalysis may also be positive due to hemoglobinuria and myoglobinuria and if red blood cells are present they are quantified by microscopic examination. Performed By: #### 4 [id number] #### [facility] [address] [place] [address] Edvin Castellanos M.D. [id number] Color (U) Colorless Normal Colorless, Yellow [facility] Comment on above: Order Comment: Micro scopic examination is performed on all urinalysis samples and only positive findings are reported. The test for blood on the chemical analytic portion of urinalysis may also be positive due to hemoglobinuria and myoglobinuria and if red blood cells are present they are quantified by microscopic examination. Performed By: #### 4 [id number] #### [facility] [address] [place] [address] Edvin Castellanos M.D. [id number] Glucose Ql (U) Negative Normal Negative [facility] Comment on above: Order Comment: Micro scopic examination is performed on all urinalysis samples and only positive findings are reported. The test for blood on the chemical analytic portion of urinalysis may also be positive due to hemoglobinuria and myoglobinuria and if red blood cells are present they are quantified by microscopic examination. Performed By: #### 4 [id number] #### [facility] [address] [place] [address] Edvin Castellanos M.D. [id number] Ketones Ql (U) Negative Normal Negative [facility] Comment on above: Order Comment: Micro scopic examination is performed on all urinalysis samples and only positive findings are reported. The test for blood on the chemical analytic portion of urinalysis may also be positive due to hemoglobinuria and myoglobinuria and if red blood cells are present they are quantified by microscopic examination. Performed By: #### 4 [id number] #### [facility] [address] [place] [address] Edvin Castellanos M.D. [id number] Leukocyte esterase Test strip Ql (U) Negative Normal Negative [facility] Comment on above: Order Comment: Micro scopic examination is performed on all urinalysis samples and only positive findings are reported. The test for blood on the chemical analytic portion of urinalysis may also be positive due to hemoglobinuria and myoglobinuria and if red blood cells are present they are quantified by microscopic examination. Performed By: #### 4 [id number] #### [facility] [address] [place] [address] Edvin Castellanos M.D. [id number] NITRITE, URINE Negative Normal Negative [facility] Comment on above: Order Comment: Micro scopic examination is performed on all urinalysis samples and only positive findings are reported. The test for blood on the chemical analytic portion of urinalysis may also be positive due to hemoglobinuria and myoglobinuria and if red blood cells are present they are quantified by microscopic examination. Performed By: #### 4 [id number] #### [facility] [address] [place] [address] Edvin Castellanos M.D. [id number] pH (U) 7.5 [pH] High 5.0-7.0 [facility] Comment on above: Order Comment: Micro scopic examination is performed on all urinalysis samples and only positive findings are reported. The test for blood on the chemical analytic portion of urinalysis may also be positive due to hemoglobinuria and myoglobinuria and if red blood cells are present they are quantified by microscopic examination. Performed By: #### 4 [id number] #### [facility] [address] [place] [address] Edvin Castellanos M.D. [id number] PROTEIN, URINE Negative Normal Negative [facility] Comment on above: Order Comment: Micro scopic examination is performed on all urinalysis samples and only positive findings are reported. The test for blood on the chemical analytic portion of urinalysis may also be positive due to hemoglobinuria and myoglobinuria and if red blood cells are present they are quantified by microscopic examination. Performed By: #### 4 [id number] #### [facility] [address] [place] [address] Edvin Castellanos M.D. [id number] Specific gravity (U) [Rel density] 1.006 Normal 1.005-1.025 [facility] Comment on above: Order Comment: Micro scopic examination is performed on all urinalysis samples and only positive findings are reported. The test for blood on the chemical analytic portion of urinalysis may also be positive due to hemoglobinuria and myoglobinuria and if red blood cells are present they are quantified by microscopic examination. Performed By: #### 4 [id number] #### [facility] [address] [place] [id number] Edvin Castellanos M.D. [id number] UROBILINOGEN, URINE <2.0 Normal <2.0 [facility] Comment on above: Order Comment: Micro scopic examination is performed on all urinalysis samples and only positive findings are reported. The test for blood on the chemical analytic portion of urinalysis may also be positive due to hemoglobinuria and myoglobinuria and if red blood cells are present they are quantified by microscopic examination. Performed By: #### 4 6625 #### [facility] [address] [place] [address] [id number] Edvin Castellanos M.D. [id number] URINE AEROBIC CULTUREon 05-30 URINE AEROBIC CULTURE URINE CULTURE No Growth (<1,000 CFU/mL) Normal [facility] Comment on above: Performed By: #### 4 [id number] #### [facility] [address] [place] [address] 69204 Edvin Castellanos M.D. [id number] UrinalysisOrdered By: Alex kingston on 06-17-2024 Bacteria Auto Ql (U) None Seen None Se en /hpf [facility] Bilirubin Ql (U) Negative Negative [facility] th Clarity Refractometry automated (U) Clear Clear [facility] Color (U) Colorless Colorless, Yellow [facility] Glucose Auto test strip (U) [Mass/Vol] Negative Negative mg/dL [facility] Hemoglobin Auto test strip Ql (U) Negative Negative [facility] Interpretation and review of laboratory results Abnormal [facility] Ketones (U) [Mass/Vol] Negative Negative mg/dL [facility] Leukocyte esterase Auto test strip Ql (U) Negative Negative [facility] Nitrite Auto test strip Ql (U) Negative Negative [facility] pH (U) 7.5 [pH] High 5.0 - 7.0 [facility] Protein (U) [Mass/Vol] Negative Negative mg/dL [facility] Specific gravity (U) [Rel density] 1.006 1.005 - 1.025 [facility] Urobilinogen (U) [Mass/Vol] mg/dL NINF - 2.0 mg/dL [facility] Microscopic examination is performed on all urinalysis samples and only positive findings are reported. The test for blood on the chemical analytic portion of urinalysis may also be positive due to hemoglobinuria and myoglobinuria and if red blood cells are present they are quantified by microscopic examination. [facility] Abdomen/Pelvis without Conto n 06-12-2024 Abdomen/Pelvis without Cont [facility] [address] [place] [address] [id number] Abdomen/Pelvis without Cont MR#: [id number] Acct: [id number] Name: KINGSLEY LUIS Rep #: [id number] : 1990 M 34 From: Amadeo Jones MD PCP: Dr. Calli Valerio DO Status: REG ER Study: Abdomen/Pelvis without Cont Date of Exam: 05/30 02/20 Exam# [id number] Ordering Dr: El Morataya DO [id number] EXAM: CT ABDOMEN AND PELVIS WITHOUT INTRAVENOUS CONTRAST CLINICAL INDICATION: hx of kidney stones TECHNIQUE: Helically acquired images were obtained of the abdomen and pelvis without intravenous contrast. This CT exam was performed using one or more of the following dose reduction techniques: automated exposure control, adjustment of the mA and/or kV according to patient size, and/or use of iterative reconstruction technique. COMPARISON: No relevant prior studies available. FINDINGS: LOWER THORAX: Unremarkable. Lung bases are clear. No cardiomegaly. No significant pericardial effusion. ABDOMEN: LIVER: Unremarkable. Homogeneous. GALLBLADDER AND BILE DUCTS: Unremarkable. No calcified gallstones. No gallbladder distention or wall edema. No intra- or extrahepatic biliary ductal dilation. PANCREAS: Unremarkable. No focal cystic mass. SPLEEN: Unremarkable. Normal size without focal cystic or solid mass. ADRENALS: Unremarkable. No nodules. KIDNEYS AND URETERS: There are nonobstructing calyceal stones bilaterally. Normal renal size and position. STOMACH AND BOWEL: Unremarkable. No stomach or bowel distention. No focal inflammatory change. PELVIS: APPENDIX: No evidence of acute appendicitis. BLADDER: Unremarkable. REPRODUCTIVE: Unremarkable as visualized. No mass. ABDOMEN and PELVIS: INTRAPERITONEAL SPACE: Unremarkable. No ascites or other fluid collection. No free air. BONES/JOINTS: Unremarkable. No suspicious lytic or blastic abnormality. SOFT TISSUES: Unremarkable. No discrete abdominal or pelvic wall hernia. VASCULATURE: Unremarkable. Abdominal aorta is non-dilated. LYMPH NODES: Unremarkable. No enlarged lymph nodes. 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 No obvious ureteral stone is identified. There are bilateral nonobstructing calyceal stones present. Electronically Signed: Amadeo Jones MD at 18:39 EDT , CC: Dr. Calli Valerio, DO; Dr. El Morataya, DO Machinist Set Up: Signed Normal [facility] CBC W/Diff, Automatedon 05-30 Absolute Lymph 1.69 X10 3/uL Normal 0.83-4.51 [facility] Comment on above: Performed By: #### L 100.0100, L500.4050, L501.2450 #### [facility] [address] [place], [address] Absolute Neut 3.4 X10 3/uL Normal 2.0-7.7 [facility] Comment on above: Performed By: #### L 100.0100, L500.4050, L501.2450 #### [facility] [address] [place], [address] Basophils/100 WBC (Bld) 0.7 % Normal 0-1 [facility] Comment on above: Performed By: #### L 100.0100, L500.4050, L501.2450 #### [facility] [address] [place], [address] Eosinophils/100 WBC (Bld) 3.7 % Normal 0-5 [facility] Comment on above: Performed By: #### L 100.0100, L500.4050, L501.2450 #### [facility] [address] [place], [address] Erythrocyte distribution width (RBC) [Ratio] 12.1 % Normal 11.6-14.6 [facility] Comment on above: Performed By: #### L 100.0100, L500.4050, L501.2450 #### [facility] [address] [place], [address] Hematocrit (Bld) [Volume fraction] 46.7 % Normal 40-54 [facility] Comment on above: Performed By: #### L 100.0100, L500.4050, L501.2450 #### [facility] [address] [place], [address] Hemoglobin (Bld) [Mass/Vol] 16.5 g/dL Normal 13.0-16.5 [facility] Comment on above: Performed By: #### L 100.0100, L500.4050, L501.2450 #### [facility] [address] [place], [address] IG% 0.200 Normal 0.0-0.9 [facility] Comment on above: Result Comment: IG% - Immature Granulocytes (promyelocytes, myelocytes and metamyelocytes) > 1% indicates that a LEFT SHIFT is Present. Performed By: #### L 100.0100, L500.4050, L501.2450 #### [facility] [address] [place], [address] Lymphocytes/100 WBC (Bld) 29.8 % Normal 19-41 [facility] Comment on above: Performed By: #### L 100.0100, L500.4050, L501.2450 #### [facility] [address] [place], [address] MCH (RBC) [Entitic mass] 30.8 pg Normal 27.0-32.0 [facility] Comment on above: Performed By: #### L 100.0100, L500.4050, L501.2450 #### [facility] [address] [place], [address] MCHC (RBC) [Mass/Vol] 35.3 g/dL Normal 32-36 [facility] Comment on above: Performed By: #### L 100.0100, L500.4050, L501.2450 #### [facility] [address] [place], [address] MCV (RBC) [Entitic vol] 87.1 fL Normal 80-94 [facility] Comment on above: Performed By: #### L 100.0100, L500.4050, L501.2450 #### [facility] [address] [place], [address] Monocytes/100 WBC (Bld) 6.0 % Normal 0-10 [facility] Comment on above: Performed By: #### L 100.0100, L500.4050, L501.2450 #### [facility] [address] [place], [address] Neutrophils/100 WBC (Bld) 59.6 % Normal 47-70 [facility] Comment on above: Performed By: #### L 100.0100, L500.4050, L501.2450 #### [facility] [address] [place], [address] Nucleated RBC (Bld) [#/Vol] 0 10*3/uL Normal 0-5 [facility] Comment on above: Performed By: #### L 100.0100, L500.4050, L501.2450 #### [facility] [address] [place], [address] Platelet mean volume (Bld) [Entitic vol] 13.0 fL High 6.2-12.0 [facility] Comment on above: Performed By: #### L 100.0100, L500.4050, L501.2450 #### [facility] [address] [place], [address] Platelets (Bld) [#/Vol] 112 10*3/uL Low 150-450 [facility] Comment on above: Performed By: #### L 100.0100, L500.4050, L501.2450 #### [facility] [address] [place], [address] RBC (Bld) [#/Vol] 5.36 10*6/uL Normal 4.6-6.2 [facility] Comment on above: Performed By: #### L 100.0100, L500.4050, L501.2450 #### [facility] [address] [place], [address] RDW SD 38.5 fl Normal 35.1-43.9 [facility] Comment on above: Performed By: #### L 100.0100, L500.4050, L501.2450 #### [facility] [address] [place], [address] WBC (Bld) [#/Vol] 5.7 10*3/uL Normal 4.4-11.0 [facility] Comment on above: Performed By: #### L 100.0100, L500.4050, L501.2450 #### [facility] [address] [place], [address] Comprehensive Metabolic Prof florian 06-12-2024 Albumin [Mass/Vol] 4.2 g/dL Normal 3.2-5.0 [facility] Comment on above: Performed By: #### L 100.0100, L500.4050, L501.2450 #### [facility] [address] [place], [address] Albumin/Globulin [Mass ratio] 1.3 {ratio} Normal 0.9-2.4 [facility] Comment on above: Performed By: #### L 100.0100, L500.4050, L501.2450 #### [facility] [address] [place], [address] ALK P 78 U/L Normal 45-117 [facility] Comment on above: Performed By: #### L 100.0100, L500.4050, L501.2450 #### [facility] [address] [place], [address] ALT [Catalytic activity/Vol] 43 U/L Normal 16-61 [facility] Comment on above: Performed By: #### L 100.0100, L500.4050, L501.2450 #### [facility] [address] [place], [address] AST [Catalytic activity/Vol] 19 U/L Normal 15-37 [facility] Comment on above: Performed By: #### L 100.0100, L500.4050, L501.2450 #### [facility] [address] [place], [address] Bilirubin [Mass/Vol] 0.40 mg/dL Normal 0.20-1.00 [facility] Comment on above: Result Comment: For patients on eltrombopag therapy, use of Dimension [place] TBIL is not recommended. Performed By: #### L 100.0100, L500.4050, L501.2450 #### [facility] [address] [place], [address] BUN/CRE 12.1 RATIO Normal 10-20 [facility] Comment on above: Performed By: #### L 100.0100, L500.4050, L501.2450 #### [facility] [address] [place], [address] CA,Total 9.3 mg/dL Normal 8.5-10.1 [facility] Comment on above: Performed By: #### L 100.0100, L500.4050, L501.2450 #### [facility] [address] [place], [address] Chloride [Moles/Vol] 107 mmol/L Normal 98-107 [facility] Comment on above: Performed By: #### L 100.0100, L500.4050, L501.2450 #### [facility] [address] [place], [address] CO2 [Moles/Vol] 27.0 mmol/L Normal 21.0-32.0 [facility] Comment on above: Performed By: #### L 100.0100, L500.4050, L501.2450 #### [facility] [address] [place], [address] Creatinine [Mass/Vol] 0.91 mg/dL Normal 0.70-1.30 [facility] Comment on above: Result Comment: The validity of the calculated GFR GFRAA in patients over 70 years has not been determined. Clinical correlation is essential. Performed By: #### L 100.0100, L500.4050, L501.2450 #### [facility] [address] [place], [address] ECRCL 125.54 ml/min Normal [facility] Comment on above: Performed By: #### L 100.0100, L500.4050, L501.2450 #### [facility] [address] [place], [address] EST GFR - AA 122 mL/min Normal >60 [facility] Comment on above: Result Comment: Afri can [place] Citizen GFR Calc Performed By: #### L 100.0100, L500.4050, L501.2450 #### [facility] [address] [place], [address] GAP 5 Normal 5-15 [facility] Comment on above: Performed By: #### L 100.0100, L500.4050, L501.2450 #### [facility] [address] [place], [address] GFR/1.73 sq M.predicted among non-blacks MDRD (S/P/Bld) [Vol rate/Area] 101 mL/min/{1.73_m2} Normal >60 [facility] Comment on above: Result Comment: Non- GFR Calc Performed By: #### L 100.0100, L500.4050, L501.2450 #### [facility] [address] [place], [address] Globulin (S) [Mass/Vol] 3.3 g/dL Normal 2.2-4.2 [facility] Comment on above: Performed By: #### L 100.0100, L500.4050, L501.2450 #### [facility] [address] [place], [address] Glucose [Mass/Vol] 95 mg/dL Normal 74-106 [facility] Comment on above: Performed By: #### L 100.0100, L500.4050, L501.2450 #### [facility] [address] [place], [address] Potassium [Moles/Vol] 3.5 mmol/L Normal 3.5-5.1 [facility] Comment on above: Performed By: #### L 100.0100, L500.4050, L501.2450 #### [facility] [address] [place], [address] Sodium [Moles/Vol] 139 mmol/L Normal 136-145 [facility] Comment on above: Performed By: #### L 100.0100, L500.4050, L501.2450 #### [facility] [address] [place], [address] T PROT 7.5 g/dL Normal 6.4-8.2 [facility] Comment on above: Performed By: #### L 100.0100, L500.4050, L501.2450 #### [facility] [address] [place], [address] Urea nitrogen [Mass/Vol] 11 mg/dL Normal 7-18 [facility] Comment on above: Performed By: #### L 100.0100, L500.4050, L501.2450 #### [facility] [address] [place], [address] Emergency Department Summary on 06-12-2024 Emergency Department Summary [facility] Medical Records Department [address] [place] [address] Emergency Department Summary 06/12/24 MR#: [id number] Acct: [id number] Name: KINGSLEY LUIS CHRISS Rep #: [id number] : 1990 34 From: El Morataya DO PCP: Dr. Calli Valerio, DO Status:REG ER Location: ED HPI History of Present Illness Chief Complaint: Flank Pain Narrative Narrative: Patient is a 34-year-old male with past medical history of nephrolithiasis, urolithiasis who presents to the emergency department with a concern for a kidney stone. According to the patient he states that he has been dealing with some discomfort now for approximately 2 weeks he states that he felt like he had a kidney stone and figured that it passed on its own. He states that he has been trying to hydrate orally with plenty of fluids. Patient states that he recently has had some chills and shaking and noted that he had some painful urination prompting him to come here for further evaluation management. Patient states that he has had several kidney stones in the past he states that he has passed some on his own and noted that he had to have surgery in the past to have some removed as well. Patient denies any recent sick contacts. He states that this does feel like he has another kidney stone. [facility] Medical History Hx of renal calculi Home Medications ???Medication ???Instructions ???Recorded ???Last Taken ???Type cetirizine 10 mg tablet (Zyrtec) 10 mg PO DAILY PRN allergy symptoms 02/02/22 Unknown History Allergy/AdvReac Type Severity Reaction Status Date / Time erythromycin base Allergy Rash Verified 06/12/24 16:54 latex Allergy Rash Verified 06/12/24 16:54 Surgical History Previous back surgery History of bladder surgery Social History Smoking Status: Never smoker ROS ROS ED ROS Narrative Constitutional: Complains of chills denies any fevers, headaches, lightheadedness, dizziness Cardiovascular: Denies chest pain or palpitations Respiratory: Denies coughing wheezing shortness of breath Abdomen: Complains of some generalized abdominal discomfort and denies any vomiting or diarrhea : States that he does have some pain with urination denies any increased frequency of urinating denies blood in his urine Neurological: Denies any numbness, weakness, tingling Musculoskeletal: Complains of some bilateral back discomfort Skin: Denies rashes or lesions EXAM Physical Exam Narrative Exam Narrative: General: Patient was lying in bed rest comfortably did not appear to be in acute distress Head: Atraumatic, normocephalic Eyes: PERRL bilaterally, EOMI bilaterally, no conjunctival injection noted Neck: Soft, supple, trach midline Cardiovascular: Regular rate and rhythm no murmurs gallops rubs noted Respiratory: Clear to auscultation bilaterally Abdomen: Soft, nondistended, no tenderness palpation, bowel sounds present x 4 Musculoskeletal: No CVA tenderness noted on exam, no midline tenderness palpation thoracolumbar spine Extremities: +5/5 strength noted in the bilateral upper and lower extremities, no pedal edema on exam Neurological: Patient was following commands knew that he was at [facility] year is 2023 Skin: Warm, dry, intact Const Vital Signs: 06/12/24 16:54 06/12/24 18:54 06/12/24 20:00 Temperature 96.9 F L Temperature Source Temporal Pulse Rate 84 81 70 Respiratory Rate 17 16 16 Blood Pressure 143/101 H 138/99 H 122/79 H Blood Pressure Mean 115 112 93 Pulse Ox 96 100 99 Oxygen Delivery Method Room Air Room Air Room Air MDM MDM MDM Narrative Medical decision making narrative: Patient is a 34-year-old male who presented to the emergency department with chief complaint of concern for kidney stone. Patient will have a workup performed here on the differential diagnose includes but not limited to urolithiasis, nephrolithiasis, UTI, pyelonephritis. Once workup is obtained reviewed he will be reevaluated. Patient was offered pain medication and states that he does not need anything for pain or nausea at this point in time. Patient's CBC reviewed and showed no evidence of leukocytosis white blood cell count normal at 5.7, hemoglobin stable at 16.5, platelet count was noted to be 112 chronically has low platelets based on previous blood draws. Patient sodium normal at 139, potassium normal at 3.5, creatinine normal at 0.91. Patient's AST and ALT were 19 and 43 respectively. Patient lipase normal at 30. Patient's urinalysis did not reveal any evidence of infection no blood noted. Patient CT abdomen pelvis without IV contrast reviewed and showed a duplicated left collecting syst (more content not included)... Normal [facility] Lipaseon 06-12-2024 Lipase [Catalytic activity/Vol] 30 U/L Normal 13-75 [facility] Comment on above: Result Comment: Neville alvarez note: LIPASE revised reference range effective 23. New Lipase methodology. Expected to produce lower values than the previous assay method. NEW Reference Range: 13 - 75 U/L Performed By: #### L 100.0100, L500.4050, L501.2450 #### [facility] [place], [address] Urinalysis, Completeon 06-12 BACTERIA 0 SEEN Normal None Seen [facility] Comment on above: Order Comment: CLEAN CATCH Performed By: #### L 400.0001 #### [facility] [address] [place], [address] EPI,SQUAMOUS 0 SEEN Normal 0-5 [facility] Comment on above: Order Comment: CLEAN CATCH Performed By: #### L 400.0001 #### [facility] [address] [place], [address] Mucus Ql (Urine sed) 0 SEEN Normal [facility] Comment on above: Order Comment: CLEAN CATCH Performed By: #### L 400.0001 #### [facility] [address] [place], [address] RBC 0 SEEN Normal 0-5 [facility] Comment on above: Order Comment: CLEAN CATCH Performed By: #### L 400.0001 #### [facility] [address] [place], [address] WBC 0 SEEN Normal 0-5 [facility] Comment on above: Order Comment: CLEAN CATCH Performed By: #### L 400.0001 #### [facility] [address] [place], [address] GLUCOSE ([id number])Ordered By: S ystem Desktop Analyst on 04-29-2022 Glucose [Mass/Vol] 96 mg/dL Normal 65-99 [facility]; [facility] Work Phone: Comment on above: PATIENT WAS FASTINGP ERFORMED BY: SUDHIR [facility] [id number] [facility] [id number] LIPID PANEL ([id number])Ordered B y: Public Area Supervisor on 04-29-2022 Cholesterol [Mass/Vol] 203 mg/dL Abnormal 100-199 [facility]; [facility] Work Phone: Comment on above: PATIENT WAS FASTINGP ERFORMED BY: SUDHIR [facility] [id number] [facility] [id number] Cholesterol in HDL [Mass/Vol] 41 mg/dL Normal [facility]; [facility] Work Phone: Comment on above: PATIENT WAS FASTINGP ERFORMED BY: SUDHIR [facility] [id number] [facility] [id number] Triglyceride [Mass/Vol] 59 mg/dL Normal 0-149 [facility]; [facility] Work Phone: Comment on above: PATIENT WAS FASTINGP ERFORMED BY: [facility] [id number] [facility] [id number] LIPID PANEL ([id number]) 11 mg/dL Normal 5-40 [facility]; [facility] Work Phone: Comment on above: PATIENT WAS FASTINGP ERFORMED BY: SUDHIR [facility] [id number] [facility] [id number] LIPID PANEL ([id number]) 151 mg/dL Abnormal 0-99 [facility]; [facility] Work Phone: Comment on above: PATIENT WAS FASTINGP ERFORMED BY: [facility] [id number] [facility] [id number] LIPID PANEL ([id number]) 3.7 {ratio} Abnormal 0.0-3.6 [facility] Work Phone: Comment on above: LDL/HDL Ratio Men Wo men 1/2 Avg.Risk 1.0 1.5 Avg.Risk 3.6 3.2 2X Avg.Risk 6.2 5.0 3X Avg.Risk 8.0 6.1 PATIENT WAS FASTINGP ERFORMED BY: [facility] [id number] [facility] [id number] Absolute lymphocyte counton 02-02-2022 Lymphocytes Auto (Unsp spec) [#/Vol] 0.75 10*3/uL 0.83-4.51 [facility] Work Phone: Basophil percentageon 2021 Basophils/100 WBC (Bld) 0.3 % 0-1 [facility] Work Phone: Bilirubin [Mass/Vol] 0.80 mg/dL 0.20-1.00 [facility] Work Phone: Comment on above: For patients on eltr ombopag therapy, use of Dimension [place] TBIL is not recommended. Chloride [Moles/Vol] 106 mmol/L 98-107 [facility] Work Phone: Eosinophils/100 WBC (Bld) 0.1 % 0-5 [facility] Work Phone: Glucose [Mass/Vol] 121 mg/dL 74-106 [facility] Work Phone: Comment on above: Fasting Glucose resu lt from 100 to 125 mg/dL suggests IMPAIRED HOMEOSTASIS per A.D.A. criteria. Neutrophils (Bld) [#/Vol] 6.0 10*3/uL 2.0-7.7 [facility] Work Phone: Neutrophils/100 WBC (Bld) 83.8 % 47-70 [facility] Work Phone: Potassium [Moles/Vol] 3.3 mmol/L 3.5-5.1 [facility] Work Phone: Protein [Mass/Vol] 7.3 g/dL 6.4-8.2 [facility] Work Phone: Sodium [Moles/Vol] 135 mmol/L 136-145 [facility] Work Phone: WBC (Bld) [#/Vol] 7.2 10*3/uL 4.4-11.0 [facility] Work Phone: Blood erythrocytes count (nu mber/volume)on 02-02-2022 RBC (Bld) [#/Vol] 5.16 10*6/uL 4.6-6.2 [facility] Work Phone: Blood hemoglobin measurement (mass/volume)on 02-02-2022 Hemoglobin (Bld) [Mass/Vol] 15.8 g/dL 13.0-16.5 [facility] Work Phone: Blood lymphocytes/100 leukoc yteson 02-02-2022 Lymphocytes/100 WBC (Bld) 10.4 % 19-41 [facility] Work Phone: Blood monocytes/100 leukocyt eson 02-02-2022 Monocytes/100 WBC (Bld) 5.0 % 0-10 [facility] Work Phone: Blood platelet adequacy dete ction by light microscopyon 02-02-2022 Platelets LM Ql (Bld) MOD DEC ADEQ [facility] Work Phone: Blood platelet mean volumeon 02-02-2022 Platelet mean volume (Bld) [Entitic vol] 11.9 fL 6.2-12.0 [facility] Work Phone: Determination of erythrocyte mean corpuscular volume (MCV)on 02-02-2022 MCV (RBC) [Entitic vol] 84.5 fL 80-94 [facility] Work Phone: Hematocrit Auto (Bld) [Volum e fraction]on 02-02-2022 Hematocrit (Bld) [Volume fraction] 43.6 % 40-54 [facility] Work Phone: Laboratory - Chemistry and C hemistry - challengeon 02-02-2022 ALP [Catalytic activity/Vol] 75 U/L 45-117 [facility] Work Phone: ALT [Catalytic activity/Vol] 47 U/L 16-61 [facility] Work Phone: CO2 [Moles/Vol] 25.0 mmol/L 21.0-32.0 [facility] Work Phone: Globulin (S) [Mass/Vol] 3.3 g/dL 2.2-4.2 [facility] Work Phone: Urea nitrogen/Creatinine [Mass ratio] 6.9 mg/mg 10-20 [facility] Work Phone: Laboratory - Hematology and Cell countson 02-02-2022 Erythrocyte distribution width (RBC) [Entitic vol] 35.8 fL 35.1-43.9 [facility] Work Phone: Erythrocyte distribution width (RBC) [Ratio] 11.8 % 11.6-14.6 [facility] Work Phone: Immature granulocytes/100 WBC (Bld) 0.400 % 0.0-0.9 [facility] Work Phone: Comment on above: IG% - Immature Granu locytes (promyelocytes, myelocytes and metamyelocytes) > 1% indicates that a LEFT SHIFT is Present. MCH (RBC) [Entitic mass] 30.6 pg 27.0-32.0 [facility] Work Phone: Nucleated RBC/100 WBC (Bld) [Ratio] 0 % 0-5 [facility] Work Phone: MCHC Auto (RBC) [Mass/Vol]on 02-02-2022 MCHC (RBC) [Mass/Vol] 36.2 g/dL 32-36 [facility] Work Phone: No Panel Informationon 02-02 SARS-CoV-2 & FLU Antigen (Rapid) [facility] Work Phone: Estimated Creatinine Clearance Calc 115.17 ml/min [facility] Work Phone: Estimated GFR (MDRD) Amer 109 mL/min >60 [facility] Work Phone: Comment on above: GFR Calc Estimated GFR (MDRD) Non-Af Amer 90 mL/min >60 [facility] Work Phone: Comment on above: Non- GFR Calc Platelets bldon 02-02-2022 Platelets (Bld) [#/Vol] 86 10*3/uL 150-450 [facility] Work Phone: RBC morphologyon 02-02-2022 RBC morphology finding Nom (Bld) NORM C+C NORMAL NORM C&C [facility] Work Phone: Serum or plasma albumin юлия urement (mass/volume)on 02-02-2022 Albumin [Mass/Vol] 4.0 g/dL 3.2-5.0 [facility] Work Phone: Serum or plasma albumin/glob ulin mass ratioon 02-02-2022 Albumin/Globulin [Mass ratio] 1.2 {ratio} 0.9-2.4 [facility] Work Phone: Serum or plasma calcium юлия urement (mass/volume)on 02-02-2022 Calcium [Mass/Vol] 8.9 mg/dL 8.5-10.1 [facility] Work Phone: Serum or plasma creatinine m easurement (mass/volume)on 02-02-2022 Creatinine [Mass/Vol] 1.02 mg/dL 0.70-1.30 [facility] Work Phone: Comment on above: The validity of the calculated GFR & GFRAA in patients over 70 years has not been determined. Clinical correlation is essential. Serum or plasma urea nitroge n measurement (mass/volume)on 02-02-2022 Urea nitrogen [Mass/Vol] 7 mg/dL 7-18 [facility] Work Phone: Thin prep Papanicolaou smear with manual screeningon 02-02-2022 Thin prep Papanicolaou smear with manual screening 17 U/L 15-37 [facility] Work Phone: Thin prep Papanicolaou smear with manual screening 4 5-15 [facility] Work Phone: Basic Metabolic Panelon 03-31 Anion gap [Moles/Vol] 13 mmol/L 9 - 17 mmol/L [place] Bun/Cre Ratio NOT REPORTED [place] Calcium [Mass/Vol] 9.4 mg/dL 8.6 - 10. 4 mg/dL [place] Chloride [Moles/Vol] 104 mmol/L 98 - 10 7 mmol/L [place] CO2 [Moles/Vol] 22 mmol/L 20 - 31 mmol/L [place] Creatinine [Mass/Vol] 0.8 mg/dL 0.7 - 1.2 mg/dL [place] GFR >60 >60 mL/min [place] GFR Non- >60 >60 mL/min [place] GFR/1.73 sq M predicted among non-blacks MDRD (S/P/Bld) [Vol rate/Area] [place] Comment on above: Average GFR for 30-3 9 years old: 107 mL/min/1.73sq m Chronic Kidney Disease: <60 mL/min/1.73sq m Kidney failure: <15 mL/min/1.73sq m eGFR calculated using average adult body mass. Additional eGFR calculator available at: http://www.[place] [place]/multiple_crcl_2012.htm GFR/1.73 sq M predicted among non-blacks MDRD (S/P/Bld) [Vol rate/Area] NOT REPORTED [place] Glucose [Mass/Vol] 95 mg/dL 70 - 99 mg/dL [place] Interpretation and review of laboratory results Abnormal [place] Potassium [Moles/Vol] 3.4 mmol/L Low 3.7 - 5.3 mmol/L [place] Sodium [Moles/Vol] 139 mmol/L 135 - 144 mmol/L [place] Urea nitrogen [Mass/Vol] 11 mg/dL 6 - 20 mg/dL [place] Basic Metabolic Profon 04-21 (cont.) Normal [facility] Comment on above: Result Comment: Aver age GFR for 30-39 years old: 107 mL/min/1.73sq m Chronic Kidney Disease: <60 mL/min/1.73sq m Kidney failure: <15 mL/min/1.73sq m eGFR calculated using average adult body mass. Additional eGFR calculator available at: http://www.[facility] [place]/multiple_crcl_2012.htm Performed By: #### C DP, ANAI, CKMBQN, DAVID, TROPI, BMP, CK #### [facility] [address] [place] [address] Field Technical Support Consultant: Chan Seth MD Anion gap [Moles/Vol] 13 mmol/L Normal - [facility] Comment on above: Performed By: #### C DP, DIME, CKMBQN, DAVID, TROPI, BMP, CK #### [facility] [address] [place] [address] Field Technical Support Consultant: Chan Seth MD Calcium [Mass/Vol] 9.4 mg/dL Normal 8.6-10.4 [facility] Comment on above: Performed By: #### C DP, DIME, CKMBQN, DAVID, TROPI, BMP, CK #### [facility] [address] [place] [address] Field Technical Support Consultant: Chan Seth MD Chloride [Moles/Vol] 104 mmol/L Normal 98-107 [facility] Comment on above: Performed By: #### C DP, DIME, CKMBQN, DAVID, TROPI, BMP, CK #### [facility] [address] [place] [address] Field Technical Support Consultant: Chan Seth MD CO2 [Moles/Vol] 22 mmol/L Normal 20-31 [facility] Comment on above: Performed By: #### C DP, DIME, CKMBQN, DAVID, TROPI, BMP, CK #### [facility] [address] [place] [address] Field Technical Support Consultant: Chan Seth MD Creatinine [Mass/Vol] 0.80 mg/dL Normal 0.70-1.20 [facility] Comment on above: Performed By: #### C DP, DIME, CKMBQN, DAVID, TROPI, BMP, CK #### [facility] [address] [place] [address] Field Technical Support Consultant: Chan Seth MD GFR, Amer >60 Normal >60 [facility] Comment on above: Performed By: #### C DP, DIME, CKMBQN, DAVID, TROPI, BMP, CK #### [facility] [address] [place] [address] Field Technical Support Consultant: Chan Seth MD GFR,non Amer >60 Normal >60 [facility] Comment on above: Performed By: #### C DP, DIME, CKMBQN, DAVID, TROPI, BMP, CK #### [facility] [address] [place] [address] Field Technical Support Consultant: Chan Seth MD Glucose [Mass/Vol] 95 mg/dL Normal 70-99 [facility] Comment on above: Performed By: #### C DP, DIME, CKMBQN, DAVID, TROPI, BMP, CK #### [facility] [address] [place] [address] Field Technical Support Consultant: Chan Seth MD Potassium [Moles/Vol] 3.4 mmol/L Low 3.7-5.3 [facility] Comment on above: Performed By: #### C DP, DIME, CKMBQN, DAVID, TROPI, BMP, CK #### [facility] [address] [place] [address] Field Technical Support Consultant: Chan Seth MD Sodium [Moles/Vol] 139 mmol/L Normal 135-144 [facility] Comment on above: Performed By: #### C DP, DIME, CKMBQN, DAVID, TROPI, BMP, CK #### [facility] [address] [place] [address] Field Technical Support Consultant: Chan Seth MD Urea nitrogen [Mass/Vol] 11 mg/dL Normal 6-20 [facility] Comment on above: Performed By: #### C DP, DIME, CKMBQN, DAVID, TROPI, BMP, CK #### [facility] [address] [place] [address] Field Technical Support Consultant: Chan Seth MD BUN/CRE Ratio NOT REPORTED Normal - [facility] Comment on above: Performed By: #### C DP, DIME, CKMBQN, DAVID, TROPI, BMP, CK #### [facility] [address] [place] [address] Field Technical Support Consultant: Chan Seth MD Staging: NOT REPORTED Normal [facility] Comment on above: Performed By: #### C DP, DIME, CKMBQN, DAVID, TROPI, BMP, CK #### [facility] [address] [place] [address] Field Technical Support Consultant: Chan Seth MD CBC Auto Differentialon 03-31 Basophils (Bld) [#/Vol] 0.10 10*3/uL [place] Basophils/100 WBC (Bld) 1 % 0 - 2 % [place] Differential Type NOT REPORTED [place] Eosinophils (Bld) [#/Vol] 0.00 10*3/uL [place] Eosinophils/100 WBC (Bld) 0 % Low 1 - 4 % [place] Erythrocyte distribution width (RBC) [Ratio] 13.5 % 12.5 - 15.4 % [place] Hematocrit (Bld) [Volume fraction] 42.3 % 41 - 53 % [place] Hemoglobin (Bld) [Mass/Vol] 14.5 g/dL 13.5 - 17.5 g/dL [place] Interpretation and review of laboratory results Abnormal [place] Lymphocytes (Bld) [#/Vol] 1.40 10*3/uL [place] Lymphocytes/100 WBC (Bld) 19 % Low 24 - 44 % [place] MCH (RBC) [Entitic mass] 30.8 pg 26 - 34 pg [place] MCHC (RBC) [Mass/Vol] 34.3 g/dL 31 - 37 g/dL [place] MCV (RBC) [Entitic vol] 89.6 fL 80 - 100 fL [place] Monocytes (Bld) [#/Vol] 0.40 10*3/uL [place] Monocytes/100 WBC (Bld) 5 % 2 - 11 % [place] Platelet mean volume (Bld) [Entitic vol] 8.7 fL 6 - 12 fL [place] Platelets (Bld) [#/Vol] 146 10*3/uL [place] Platelets (Bld) [#/Vol] NOT REPORTED [place] RBC (Bld) [#/Vol] 4.71 10*6/uL 4.5 - 5.9 m/uL [place] RBC morphology finding Nom (Bld) NOT REPORTED [place] Segmented neutrophils/100 WBC (Bld) 75 % High 36 - 66 % [place] Segs Absolute 5.40 [place] WBC (Bld) [#/Vol] 7.2 10*3/uL [place] WBC (Bld) [#/Vol] NOT REPORTED per 100 WBC [place] WBC Morphology NOT REPORTED [place], [place] CBC with Diffon 04-21-2020 Abs. Basophil 0.10 k/uL Normal 0.0-0.2 [facility] Comment on above: Performed By: #### C DP, DIME, CKMBQN, DAVID, TROPI, BMP, CK #### [facility] [address] [place], [place] [id number] Field Technical Support Consultant: Chan Seth MD Abs.Neutrophil (Seg) 5.40 k/uL Normal 1.8-7.7 [facility] Comment on above: Performed By: #### C DP, DIME, CKMBQN, DAVID, TROPI, BMP, CK #### [facility] [address] [place], [place] [id number] Field Technical Support Consultant: Chan Seth MD Basophils/100 WBC (Bld) 1 % Normal 0-2 [facility] Comment on above: Performed By: #### C DP, DIME, CKMBQN, DAVID, TROPI, BMP, CK #### [facility] [address] [place] [address] Field Technical Support Consultant: Chan Seth MD Eosinophils (Bld) [#/Vol] 0.00 10*3/uL Normal 0.0-0.4 [facility] Comment on above: Performed By: #### C DP, DIME, CKMBQN, DAVID, TROPI, BMP, CK #### [facility] [address] [place] [address] Field Technical Support Consultant: Chan Seth MD Eosinophils/100 WBC (Bld) 0 % Low 1-4 [facility] Comment on above: Performed By: #### C DP, DIME, CKMBQN, DAVID, TROPI, BMP, CK #### [facility] [address] [place] [address] Field Technical Support Consultant: Chan Seth MD Erythrocyte distribution width (RBC) [Ratio] 13.5 % Normal 12.5-15.4 [facility] Comment on above: Performed By: #### C DP, DIME, CKMBQN, DAVID, TROPI, BMP, CK #### [facility] [address] [place] [address] Field Technical Support Consultant: Chan Seth MD Hematocrit (Bld) [Volume fraction] 42.3 % Normal 41-53 [facility] Comment on above: Performed By: #### C DP, DIME, CKMBQN, DAVID, TROPI, BMP, CK #### [facility] [address] [place] [address] Field Technical Support Consultant: Chan Seth MD Hemoglobin (Bld) [Mass/Vol] 14.5 g/dL Normal 13.5-17.5 [facility] Comment on above: Performed By: #### C DP, DIME, CKMBQN, DAVID, TROPI, BMP, CK #### [facility] [address] [place] [address] Field Technical Support Consultant: Chan Seth MD Lymphocytes (Bld) [#/Vol] 1.40 10*3/uL Normal 1.0-4.8 [facility] Comment on above: Performed By: #### C DP, DIME, CKMBQN, DAVID, TROPI, BMP, CK #### [facility] [address] [place] [address] Field Technical Support Consultant: Chan Seth MD Lymphocytes/100 WBC (Bld) 19 % Low 24-44 [facility] Comment on above: Performed By: #### C DP, DIME, CKMBQN, DAVID, TROPI, BMP, CK #### [facility] [address] [place] [address] Field Technical Support Consultant: Chan Seth MD MCH (RBC) [Entitic mass] 30.8 pg Normal 26-34 [facility] Comment on above: Performed By: #### C DP, DIME, CKMBQN, DAVID, TROPI, BMP, CK #### [facility] [address] [place] [address] Field Technical Support Consultant: Chan Seth MD MCHC (RBC) [Mass/Vol] 34.3 g/dL Normal 31-37 [facility] Comment on above: Performed By: #### C DP, DIME, CKMBQN, DAVID, TROPI, BMP, CK #### [facility] [address] [place] [address] Field Technical Support Consultant: Chan Seth MD MCV (RBC) [Entitic vol] 89.6 fL Normal 80-100 [facility] Comment on above: Performed By: #### C DP, DIME, CKMBQN, DAVID, TROPI, BMP, CK #### [facility] [address] [place] [address] Field Technical Support Consultant: Chan Seth MD Monocytes (Bld) [#/Vol] 0.40 10*3/uL Normal 0.1-1.2 [facility] Comment on above: Performed By: #### C DP, DIME, CKMBQN, DAVID, TROPI, BMP, CK #### [facility] [address] [place] [address] Field Technical Support Consultant: Chan Seth MD Monocytes/100 WBC (Bld) 5 % Normal 2-11 [facility] Comment on above: Performed By: #### C DP, DIME, CKMBQN, DAVID, TROPI, BMP, CK #### [facility] [address] [place] [address] Field Technical Support Consultant: Chan Seth MD Neutrophil (Seg) 75 % High 36-66 [facility] Comment on above: Performed By: #### C DP, DIME, CKMBQN, DAVID, TROPI, BMP, CK #### [facility] [address] [place] [address] Field Technical Support Consultant: Chan Seth MD Platelet mean volume (Bld) [Entitic vol] 8.7 fL Normal 6.0-12.0 [facility] Comment on above: Performed By: #### C DP, DIME, CKMBQN, DAVID, TROPI, BMP, CK #### [facility] [address] [place] [address] Field Technical Support Consultant: Chan Seth MD Platelets (Bld) [#/Vol] 146 10*3/uL Normal 140-450 [facility] Comment on above: Performed By: #### C DP, DIME, CKMBQN, DAVID, TROPI, BMP, CK #### [facility] [address] [place] [address] Field Technical Support Consultant: Chan Seth MD RBC (Bld) [#/Vol] 4.71 10*6/uL Normal 4.5-5.9 [facility] Comment on above: Performed By: #### C DP, DIME, CKMBQN, DAVID, TROPI, BMP, CK #### [facility] [address] [place] [address] Field Technical Support Consultant: Chan Seth MD WBC (Bld) [#/Vol] 7.2 10*3/uL Normal 3.5-11.0 [facility] Comment on above: Performed By: #### C DP, DIME, CKMBQN, DAVID, TROPI, BMP, CK #### [facility] [address] [place] [address] Field Technical Support Consultant: Chan Seth MD Abs.Imm.Granulocyte NOT REPORTED Normal 0.00-0.30 [facility] Comment on above: Performed By: #### C DP, DIME, CKMBQN, DAVID, TROPI, BMP, CK #### [facility] [address] [place] [address] Field Technical Support Consultant: Chan Seth MD Auto Diff Performed NOT REPORTED Normal [facility] Comment on above: Performed By: #### C DP, DIME, CKMBQN, DAVID, TROPI, BMP, CK #### [facility] [address] [place] [address] Field Technical Support Consultant: Chan Seth MD Immature granulocytes (Bld) [#/Vol] NOT REPORTED Normal 0 [facility] Comment on above: Performed By: #### C DP, DIME, CKMBQN, DAVID, TROPI, BMP, CK #### [facility] [address] [place] [address] Field Technical Support Consultant: Chan Seth MD NRBC Automated NOT REPORTED Normal [facility] Comment on above: Performed By: #### C DP, DIME, CKMBQN, DAVID, TROPI, BMP, CK #### [facility] [address] [place] [address] Field Technical Support Consultant: Chan Seth MD Platelets (Bld) [#/Vol] NOT REPORTED Normal [facility] Comment on above: Performed By: #### C DP, DIME, CKMBQN, DAVID, TROPI, BMP, CK #### [facility] [address] [place] [address] Field Technical Support Consultant: Chan Seth MD RBC morphology finding Nom (Bld) NOT REPORTED Normal [facility] Comment on above: Performed By: #### C DP, DIME, CKMBQN, DAVID, TROPI, BMP, CK #### [facility] [address] [place] [address] Field Technical Support Consultant: Chan Seth MD WBC Morphology NOT REPORTED Normal [facility] Comment on above: Performed By: #### C DP, DIME, CKMBQN, DAVID, TROPI, BMP, CK #### [facility] [address] [place] [address] [id number] Field Technical Support Consultant: Chan Seth MD CKon 04-21-2020 Total CK 193 U/L 39 - 308 U/L [place] CK MBon 04-21-2020 CK.MB [Mass/Vol] 7.6 ng/mL <10.5 [facility] CK-MB,Quantitativeon 020 CK-MB,Quantitative 7.6 ng/mL Normal <10.5 [facility] Comment on above: Performed By: #### C DP, DIME, CKMBQN, DAVID, TROPI, BMP, CK #### [facility] [address] [place] [address] Field Technical Support Consultant: Chan Seth MD Creatine Kinaseon 04-21-2020 CK [Catalytic activity/Vol] 193 U/L Normal 39-308 [facility] Comment on above: Performed By: #### C DP, DIME, CKMBQN, DAVID, TROPI, BMP, CK #### [facility] [address] [place] [address] Field Technical Support Consultant: Chan Seth MD D-Dimer Teston 04-21-2020 D-Dimer Test <0.19 Normal [facility] Comment on above: Result Comment: When combined with a low clinical probability, a D dimer value of <0.50 mg/L FEU is considered negative for DVT and PE (negative predictive value of 98%, sensitivity of 97%). If this test is not being used to help rule out DVT and PE, then the following reference range should be utilized: 0.00 - 1.02 mg/L FEU. The [employer] D-Dimer assay is intended for use as an aid in the diagnosis of venous thromboembolism (DVT and PE) and the results should be interpreted in conjunction with the patient's medical history, clinical presentation, and other findings. Elevated levels of D-dimer activity can be seen in any state of coagulation activation and is not recommended in patients with therapeutic dose anticoagulant therapy for >24 hours, fibrinolytic therapy within the previous 7 days, trauma or surgery within the previous 4 weeks, disseminated malignancies, aortic aneurysm, sepsis, severe infections, pneumonia, severe skin infections, liver cirrhosis, advanced age, coronary disease, diabetes, and . A very low percentage of patients with DVT may yield D-dimer results below the cutoff of 0.5 mg/L FEU. This is known to be more prevalent in patients with distal DVT. Performed By: #### C DP, DIME, CKMBQN, DAVID, TROPI, BMP, CK #### [facility] [address] [place], [place] [id number] Field Technical Support Consultant: Chan Seth MD D-Dimer, Quantitativeon 03-31 D-Dimer, Quant <0.19 mg/L FEU [place], [place] Comment on above: When combined with a low clinical probability, a D dimer value of <0.50 mg/L FEU is considered negative for DVT and PE (negative predictive value of 98%, sensitivity of 97%). If this test is not being used to help rule out DVT and PE, then the following reference range should be utilized: 0.00 - 1.02 mg/L FEU. The [employer] D-Dimer assay is intended for use as an aid in the diagnosis of venous thromboembolism (DVT and PE) and the results should be interpreted in conjunction with the patient's medical history, clinical presentation, and other findings. Elevated levels of D-dimer activity can be seen in any state of coagulation activation and is not recommended in patients with therapeutic dose anticoagulant therapy for >24 hours, fibrinolytic therapy within the previous 7 days, trauma or surgery within the previous 4 weeks, disseminated malignancies, aortic aneurysm, sepsis, severe infections, pneumonia, severe skin infections, liver cirrhosis, advanced age, coronary disease, diabetes, and . A very low percentage of patients with DVT may yield D-dimer results below the cutoff of 0.5 mg/L FEU. This is known to be more prevalent in patients with distal DVT. Myoglobinon 04-21-2020 Myoglobin [Mass/Vol] 79 ng/mL High 28-72 [facility] Comment on above: Performed By: #### C DP, DIME, CKMBQN, DAVID, TROPI, BMP, CK #### [facility] [address] [place] [address] Field Technical Support Consultant: Chan Seth MD Myoglobin, Serumon 0 Interpretation and review of laboratory results Abnormal [place], [place] Myoglobin [Mass/Vol] 79 ng/mL High 28 - 72 ng/mL [place], [place] Otheron 04-21-2020 Immature granulocytes (Bld) [#/Vol] NOT REPORTED 0 % [place] Troponinon 04-21-2020 Troponin I.cardiac [Mass/Vol] 6 ng/L Normal 0-22 [facility] Comment on above: Result Comment: High Sensitivity Troponin values cannot be compared with other Troponin methodologies. Patients with high levels of Biotin oral intake (i.e >5mg/day) may have falsely decreased Troponin levels. Samples collected within 8 hours of biotin intake may require additional information for diagnosis. Performed By: #### C DP, DIME, CKMBQN, DAVID, TROPI, BMP, CK #### [facility] [address] [place], [place] [id number] Field Technical Support Consultant: Chan Seth MD Troponin I.cardiac [Mass/Vol] NOT REPORTED Normal <0.03 [facility] Comment on above: Performed By: #### C DP, DIME, CKMBQN, DAVID, TROPI, BMP, CK #### [facility] [address] [place], [place] [id number] Field Technical Support Consultant: Chan Seth MD Troponin I.cardiac [Mass/Vol] NOT REPORTED [place], [place] Troponin T.cardiac [Mass/Vol] NOT REPORTED <0.03 ng/mL [place] Troponin, High Sensitivity 6 ng/L 0 - 22 ng/L [place] Comment on above: High Sensitivity Troponin values cannot be compared with other Troponin methodologies. Patients with high levels of Biotin oral intake (i.e >5mg/day) may have falsely decreased Troponin levels. Samples collected within 8 hours of biotin intake may require additional information for diagnosis. XR CHEST PORTABLEon 04-21-20 XR CHEST PORTABLE EXAMINATION: ONE XRAY VIEW OF THE CHEST 04/21/2020 6:37 pm COMPARISON: None. HISTORY: ORDERING SYSTEM PROVIDED HISTORY: cough TECHNOLOGIST PROVIDED HISTORY: cough Reason for Exam: SOB,dizziness, rash Acuity: Acute Type of Exam: Initial FINDINGS: The cardiomediastinal silhouette is unremarkable. The lungs are clear. No infiltrate, pleural fluid or focal process is seen. No acute osseous findings. IMPRESSION: No acute cardiopulmonary disease. Interpreted by: Chriss Moore MD Signed by: Chriss Moore MD 04/21/20 Final result Normal [facility] No acute cardiopulmonary disease. [place], [place] EXAMINATION: ONE XRA Y VIEW OF THE CHEST 04/21/2020 6:37 pm COMPARISON: None. HISTORY: ORDERING SYSTEM PROVIDED HISTORY: cough TECHNOLOGIST PROVIDED HISTORY: cough Reason for Exam: SOB,dizziness, rash Acuity: Acute Type of Exam: Initial FINDINGS: The cardiomediastinal silhouette is unremarkable. The lungs are clear. No infiltrate, pleural fluid or focal process is seen. No acute osseous findings. [place], [place] Isra, [facility] Incoming Radiant Results From [employer] - 04/21/2020 6:56 PM EDT EXAMINATION: ONE XRAY VIEW OF THE CHEST 04/21/2020 6:37 pm COMPARISON: None. HISTORY: ORDERING SYSTEM PROVIDED HISTORY: cough TECHNOLOGIST PROVIDED HISTORY: cough Reason for Exam: SOB,dizziness, rash Acuity: Acute Type of Exam: Initial FINDINGS: The cardiomediastinal silhouette is unremarkable. The lungs are clear. No infiltrate, pleural fluid or focal process is seen. No acute osseous findings. IMPRESSION: No acute cardiopulmonary disease. [place], [place] CT KIDNEY STONEon 04-23-2019 CT KIDNEY STONE EXAMINATION: STONE PROTOCOL CT OF THE ABDOMEN AND PELVIS 04/23/2019 TECHNIQUE: CT of the abdomen and pelvis was performed without the administration of intravenous contrast. Multiplanar reformatted images are provided for review. Dose modulation, iterative reconstruction, and/or weight based adjustment of the mA/kV was utilized to reduce the radiation dose to as low as reasonably achievable. COMPARISON: 02/19/2019. HISTORY: ORDERING SYSTEM PROVIDED HISTORY: gross hematuria, history of kidney stones s/p lithotripsy; TECHNOLOGIST PROVIDED HISTORY: Illness/Other Acuity: Chronic Reason for Exam: s/p percutaneous nephrolithotomy on right side March 12, 2019 then had ureteroscopy 2 weeks later; f/u Type of Encounter: Subsequent/Follow-up Additional signs and symptoms: none ORDERING SYSTEM PROVIDED DIAGNOSIS CODES: N20.0 Kidney stone FINDINGS: LOWER CHEST: Visualized portion of the lower chest demonstrates no acute abnormality. KIDNEYS AND URINARY TRACT: There is a duplicated left renal collecting system. There are multiple nonobstructing bilateral renal calculi. There is mild right hydronephrosis and mild hydronephrosis of the left lower pole moiety, both of which are unchanged from the prior CT. ORGANS: Lack of intravenous contrast limits evaluation of the solid organs and bowel. The solid organs are grossly unremarkable. GI/BOWEL: No bowel obstruction. No evidence of acute appendicitis. PELVIS: The bladder and pelvic organs are unremarkable. PERITONEUM/RETROPERITO NEUM: No lymphadenopathy is noted. BONES/SOFT TISSUES: The osseous structures demonstrate no acute abnormality. IMPRESSION: No acute abnormality. Duplicated left renal collecting system. Unchanged mild dilation of the left lower collecting system and right collecting system. SM/lab Workstation ID: [id number] Dictated by: ABDIAS JUAREZ on MonApr 23, 2019 4:52:52 PM EDT Transcribed by: ADAL MADRIGAL on MonApr 23, 2019 4:52:52 PM EDT Finalized by: ABDIAS JUAREZ on MonApr 25, 2019 10:28:41 PM EDT [facility] Comment on above: Order Comment: Injur y/Trauma or Illness?:Illness/Other How long have you had these symptoms (acute/chronic)?:Chronic Reason for exam?:s/p percutaneous nephrolithotomy on right side March 12, 2019 then had ureteroscopy 2 weeks later; f/u Type of Exam?:Subsequent/Follow-up Additional signs and symptoms?:none [facility] Anion gap molar conc 14 mmol/L 10 - 20 mmol/L [facility] Calcium mass conc 8.6 mg/dL 8.4 - 10.2 mg/dL [facility] Chloride molar conc 108 mmol/L 98 - 108 mmol/L [facility] Creatinine mass conc 0.69 mg/dL 0.5 - 1 .3 mg/dL [facility] GFR/1.73 sq M predicted among non-blacks MDRD vol rate/area (S/P/Bld) The eGFR should be used for monitoring renal function only and not for medication dosing. [facility] GFR/1.73 sq M.predicted CKD-EPI vol rate/area (S/P/Bld) 129 >=60 mL/min/1.73 m2 [facility] Glucose mass conc 112 mg/dL High 65 - 99 mg/dL [facility] HCO3 molar conc 24 mmol/L 21 - 32 mmol/L [facility] Interpretation and review of laboratory results Abnormal [facility] Potassium molar conc 3.9 mmol/L 3.5 - 5 .1 mmol/L [facility] Sodium molar conc 142 mmol/L 135 - 145 mmol/L [facility] Urea nitrogen mass conc 9 mg/dL 8 - 25 mg/dL [facility] Urea nitrogen/Creatinine mass ratio 13.0 mg/mg [facility] CBCon 03-14-2019 Erythrocyte distribution width Entitic volume (RBC) 12.4 % 11.6 - 14.8 % [facility] Hematocrit Volume Fraction (Bld) 38.1 % Low 41 - 53 % [facility] Hemoglobin mass conc (Bld) 13.4 g/dL Low 13.5 - 17.5 g/dL [facility] Interpretation and review of laboratory results Abnormal [facility] MCH Entitic mass (RBC) 31.2 pg 26 - 34 pg [facility] MCHC mass conc (RBC) 35.2 g/dL 31 - 37 g/dL [facility] MCV Entitic volume (RBC) 88.8 fL 80 - 100 fL [facility] Nucleated RBC #/vol (Bld) 0.00 10*3/uL [facility] Nucleated RBC/100 WBC Ratio (Bld) 0.0 % [facility] Platelet mean volume Entitic volume (Bld) 10.8 fL 9 - 15.5 fL [facility] Platelets #/vol (Bld) 132 10*3/uL Low [facility] RBC #/vol (Bld) 4.29 10*6/uL Low [facility] WBC #/vol (Bld) 9.25 10*3/uL [facility] XR OR RETROGRADE PYELOGRAMon 03-13-2019 XR OR RETROGRADE PYELOGRAM EXAMINATION: XR OR RETROGRADE PYELOGRAM HISTORY: ORDERING SYSTEM PROVIDED HISTORY: kidney stone, TECHNOLOGIST PROVIDED HISTORY: Reason for exam: retrograde, stone manipulation Illness/Other Encounter Type: Unknown Additional signs and symptoms: stent placement Fluoro dose in mGy: 2.25 ORDERING SYSTEM PROVIDED DIAGNOSIS CODES: N20.0 Kidney calculus COMPARISON: None. TECHNIQUE: Fluoro Dose Ka,r mGy: Fluoro dose in Ka,r mGy: 2.25 FINDINGS: Three images are submitted taken during percutaneous nephrolithotomy. Final images show the presence of a ureteral stent. IMPRESSION: Percutaneous nephrolithotomy. [employer] Workstation ID: [id number] Dictated by: PATTIE LANDA on MonMarch 14, 2019 4:08:07 PM EDT Transcribed by: CANDELARIA WESLEY on MonMarch 14, 2019 4:08:07 PM EDT Finalized by: PATTIE LANDA on MonMarch 14, 2019 4:51:29 PM EDT Dictated by: PATTIE LANDA on MonMarch 14, 2019 4:08:07 PM EDT Transcribed by: CANDELARIA WESLEY on [place] March 14, 2019 4:08:07 PM EDT Finalized by: PATTIE LANDA on [place] March 14, 2019 4:51:29 PM EDT Normal [facility] Comment on above: Order Comment: Reaso n for exam?:retrograde, stone manipulation Injury/Trauma or Illness?:Illness/Other How long have you had these symptoms (acute/chronic)?:Unknown Type of Exam?:Unknown Additional signs and symptoms?:stent placement Fluoro time in minutes:.28 Fluoro dose in mGy?:2.25 VR Nephrostomy Right Tube In serton 03-12-2019 Successful placement of a right 5 Croatian nephroureteral catheter. The tube was capped and dressed sterilely. Workstation ID: [id number] ATOMOO EXAMINATION: 1. ULTRASOUND IMAGING OF THE RIGHT AND GUIDED ACCESS 2. ANTEGRADE RIGHT NEPHROSTOGRAM 3. PLACEMENT OF 5 CYPRIOT RIGHT NEPHROURETERAL CATHETER 4. IV MODERATE SEDATION AND MONITORING. HISTORY: 28 year old male with nephrolithiasis. Access requested for right nephrolithotomy procedure on 03/13/2019 PHYSICIAN: Didi Lopez M.D. CONTRAST: 10 mL of Isovue 300 FLUOROSCOPIC TIME: 1.3 minutes. 8.8 mGy. COMPLICATIONS: None. ESTIMATED BLOOD LOSS: Trace. MEDICATIONS: Intravenous conscious sedation with continuous cardiorespiratory monitoring utilizing 3 mg IV Versed and 150 mcg IV fentanyl per nursing notes documented in electronic medical record. Antibiotic IV as per electronic medical record. Lidocaine 2%, local. TECHNIQUE AND FINDINGS: After the patient was informed of the risks, benefits, and alternatives of the procedure, and informed consent was obtained and documented, the patient was brought to the interventional radiology suite and prepped and draped in the usual sterile manner. A time-out and pause/confirm was performed. IV moderate sedation was initiated and continued with divided doses of Versed and Fentanyl with an independent observer. Continuous noninvasive cardiopulmonary and oxygen saturation monitoring demonstrated stable vital signs throughout the procedure with no evidence of complication. Ultrasound and fluoroscopic guided placement of right percutaneous nephrostomy tube: After localizing an approach using real-time ultrasound guidance, lidocaine local anesthetic was administered at the right flank subcostal region to numb the anticipated tract. Then, a 21-gauge Chiba needle was advanced under ultrasound guidance into a posterior lower pole calyx. Contrast was injected, and antegrade nephrostogram images were obtained. Next, a 0.018 wire was advanced through the 21-gauge needle into the collecting system. The Justice set sheath was then advanced. A 0.035 Amplatz wire was advanced through the Justice set sheath into the collecting system through the ureter and into the bladder. The Justice set sheath was removed over the wire and exchanged for an 5-Croatian DOMI catheter which was advanced into the bladder. Contrast was injected to confirm positioning and then the tube was sutured into position. The catheter was capped and sterile dressings were applied. [facility], Rad In Fu ji Speechq - 03/12/2019 12:08 PM EDT EXAMINATION: 1. ULTRASOUND IMAGING OF THE RIGHT AND GUIDED ACCESS 2. ANTEGRADE RIGHT NEPHROSTOGRAM 3. PLACEMENT OF 5 CYPRIOT RIGHT NEPHROURETERAL CATHETER 4. IV MODERATE SEDATION AND MONITORING. HISTORY: 28 year old male with nephrolithiasis. Access requested for right nephrolithotomy procedure on 03/13/2019 PHYSICIAN: Didi Lopez M.D. CONTRAST: 10 mL of Isovue 300 FLUOROSCOPIC TIME: 1.3 minutes. 8.8 mGy. COMPLICATIONS: None. ESTIMATED BLOOD LOSS: Trace. MEDICATIONS: Intravenous conscious sedation with continuous cardiorespiratory monitoring utilizing 3 mg IV Versed and 150 mcg IV fentanyl per nursing notes documented in electronic medical record. Antibiotic IV as per electronic medical record. Lidocaine 2%, local. TECHNIQUE AND FINDINGS: After the patient was informed of the risks, benefits, and alternatives of the procedure, and informed consent was obtained and documented, the patient was brought to the interventional radiology suite and prepped and draped in the usual sterile manner. A time-out and pause/confirm was performed. IV moderate sedation was initiated and continued with divided doses of Versed and Fentanyl with an independent observer. Continuous noninvasive cardiopulmonary and oxygen saturation monitoring demonstrated stable vital signs throughout the procedure with no evidence of complication. Ultrasound and fluoroscopic guided placement of right percutaneous nephrostomy tube: After localizing an approach using real-time ultrasound guidance, lidocaine local anesthetic was administered at the right flank subcostal region to numb the anticipated tract. Then, a 21-gauge Chiba needle was advanced under ultrasound guidance into a posterior lower pole calyx. Contrast was injected, and antegrade nephrostogram images were obtained. Next, a 0.018 wire was advanced through the 21-gauge needle into the collecting system. The Justice set sheath was then advanced. A 0.035 Amplatz wire was advanced through the Justice set sheath into the collecting system through the ureter and into the bladder. The Justice set sheath was removed over the wire and exchanged for an 5-Croatian DOMI catheter which was advanced into the bladder. Contrast was injected to confirm positioning and then the tube was sutured into position. The catheter was capped and sterile dressings were applied. IMPRESSION: Successful placement of a right 5 Croatian nephroureteral catheter. The tube was capped and dressed sterilely. Workstation ID: [id number] [facility] Basic Metabolic Panelon 01-29 Anion gap molar conc 17 mmol/L 10 - 20 mmol/L [facility] Calcium mass conc 9.8 mg/dL 8.4 - 10.2 mg/dL [facility] Chloride molar conc 106 mmol/L 98 - 108 mmol/L [facility] Creatinine mass conc 1.24 mg/dL 0.5 - 1 .3 mg/dL [facility] GFR/1.73 sq M predicted among non-blacks MDRD vol rate/area (S/P/Bld) The eGFR should be used for monitoring renal function only and not for medication dosing. [facility] GFR/1.73 sq M.predicted CKD-EPI vol rate/area (S/P/Bld) 79 >=60 mL/min/1.73 m2 [facility] Glucose mass conc 91 mg/dL 65 - 99 mg/dL [facility] HCO3 molar conc 28 mmol/L 21 - 32 mmol/L [facility] Interpretation and review of laboratory results Abnormal [facility] Potassium molar conc 4.6 mmol/L 3.5 - 5 .1 mmol/L [facility] Sodium molar conc 146 mmol/L High 135 - 145 mmol/L [facility] Urea nitrogen mass conc 13 mg/dL 8 - 25 mg/dL [facility] Urea nitrogen/Creatinine mass ratio 10.5 mg/mg [facility] CBCon 02-22-2019 Erythrocyte distribution width Entitic volume (RBC) 12.4 % 11.6 - 14.8 % [facility] Hematocrit Volume Fraction (Bld) 47.9 % 41 - 53 % [facility] Hemoglobin mass conc (Bld) 16.4 g/dL 13.5 - 17.5 g/dL [facility] MCH Entitic mass (RBC) 31.3 pg 26 - 34 pg [facility] MCHC mass conc (RBC) 34.2 g/dL 31 - 37 g/dL [facility] MCV Entitic volume (RBC) 91.4 fL 80 - 100 fL [facility] Nucleated RBC #/vol (Bld) 0.00 10*3/uL [facility] Nucleated RBC/100 WBC Ratio (Bld) 0.0 % [facility] Platelet mean volume Entitic volume (Bld) 10.5 fL 9 - 15.5 fL [facility] Platelets #/vol (Bld) 213 10*3/uL [facility] RBC #/vol (Bld) 5.24 10*6/uL [facility] WBC #/vol (Bld) 5.05 10*3/uL [facility] Pre-op [facility] PT/INRon 02-22-2019 INR Coag RelTime (PPP) 1.0 {INR} [facility] Interpretation and review of laboratory results Normal [facility] Prothrombin time (PT) Coag time (PPP) 12.8 s [facility] During the induction phase of oral anticoagulation, the INR may not reflect the anticoagulation status of the patient. 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 No evidence to suggest obstruction. Bilateral nonobstructing renal calculi. Workstation ID: [id number] [facility] EXAMINATION: CT UROGRAM HISTORY: ORDERING SYSTEM PROVIDED HISTORY: h/o bilateral kidney stones, known duplicated collecting system and unknown reconstructive surgery on the bladder as , TECHNOLOGIST PROVIDED HISTORY: Reason for exam: c/o LT groin pain, passed a renal stone 1 week ago, has large stones in bilat. kidneys Illness/Other Encounter Type: Initial Additional signs and symptoms: intermittent Bilateral flank pain ORDERING SYSTEM PROVIDED DIAGNOSIS CODES: N20.0 Kidney stone COMPARISON: None TECHNIQUE: CT urogram examination of the abdomen and pelvis. Images were obtained prior to and following the administration of intravenous contrast. Coronal and sagittal reformations were performed. Additional 3D reconstructions were rendered. Dose reduction techniques were achieved by using automated exposure control and/or adjustment of mA and/or kV according to patient size and/or use of iterative reconstruction technique. CONTRAST: IOPAMIDOL 76 % INTRAVENOUS SOLUTION - 120 mL, FINDINGS: Lung bases: Clear. Liver:Visualized portions are normal in enhancement.No hepatic masses are identified. Liver Vasculature: The portal and hepatic veins are patent. Biliary Tree and Gallbladder: No intrahepatic or extrahepatic bile duct dilatation. The gallbladder is present. Pancreas: Normal in size without masses or ductal dilatation. No peripancreatic inflammatory changes. Spleen:Normal in size without focal lesions. Adrenal Glands: Normal bilaterally. Kidneys: Symmetric in enhancement. Slight asymmetric enlargement of the left kidney. 11 mm hypodense left renal lesion, likely a simple cyst. Subcentimeter hypodensity within the right kidney is too small to characterize. Bilateral nonobstructing renal calculi are evident. The largest calculus within the right kidney measures up to 7 mm in diameter within the upper pole. The largest calculus within the left kidney measures up to 6 mm in diameter within the lower pole. 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 The upper pole moiety is normal in caliber and is well opacified to the level of the bladder. There is mild pelvocaliectasis of the lower pole moiety with mild dilation of the distal left ureter. Single right renal collecting system with well opacified right ureter. Mild ectasia of the distal right ureter. No ureteral filling defect or asymmetric urothelial thickening. Bladder is otherwise unremarkable. Gastrointestinal Tract: No wall thickening or abnormal dilatation. Appendix is normal in appearance. Peritoneal Cavity and Surfaces, Retroperitoneum: No free fluid. No free intraperitoneal air. No peritoneal or retroperitoneal masses. Abdominal and Pelvic Vasculature: Patent. Lymph Nodes: No retroperitoneal, mesenteric or pelvic lymphadenopathy. Pelvic Organs: Partially visualized right prosthetic testicle. Abdominal Wall: No hernias or other abnormalities. Osseous Structures:No aggressive appearing osseous lesions. [facility], Rad In Fu ji Speechq - 02/19/2019 12:08 PM EDT EXAMINATION: CT UROGRAM HISTORY: ORDERING SYSTEM PROVIDED HISTORY: h/o bilateral kidney stones, known duplicated collecting system and unknown reconstructive surgery on the bladder as , TECHNOLOGIST PROVIDED HISTORY: Reason for exam: c/o LT groin pain, passed a renal stone 1 week ago, has large stones in bilat. kidneys Illness/Other Encounter Type: Initial Additional signs and symptoms: intermittent Bilateral flank pain ORDERING SYSTEM PROVIDED DIAGNOSIS CODES: N20.0 Kidney stone COMPARISON: None TECHNIQUE: CT urogram examination of the abdomen and pelvis. Images were obtained prior to and following the administration of intravenous contrast. Coronal and sagittal reformations were performed. Additional 3D reconstructions were rendered. Dose reduction techniques were achieved by using automated exposure control and/or adjustment of mA and/or kV according to patient size and/or use of iterative reconstruction technique. CONTRAST: IOPAMIDOL 76 % INTRAVENOUS SOLUTION - 120 mL, FINDINGS: Lung bases: Clear. Liver:Visualized portions are normal in enhancement.No hepatic masses are identified. Liver Vasculature: The portal and hepatic veins are patent. Biliary Tree and Gallbladder: No intrahepatic or extrahepatic bile duct dilatation. The gallbladder is present. Pancreas: Normal in size without masses or ductal dilatation. No peripancreatic inflammatory changes. Spleen:Normal in size without focal lesions. Adrenal Glands: Normal bilaterally. Kidneys: Symmetric in enhancement. Slight asymmetric enlargement of the left kidney. 11 mm hypodense left renal lesion, likely a simple cyst. Subcentimeter hypodensity within the right kidney is too small to characterize. Bilateral nonobstructing renal calculi are evident. The largest calculus within the right kidney measures up to 7 mm in diameter within the upper pole. The largest calculus within the left kidney measures up to 6 mm in diameter within the lower pole. 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 The upper pole moiety is normal in caliber and is well opacified to the level of the bladder. There is mild pelvocaliectasis of the lower pole moiety with mild dilation of the distal left ureter. Single right renal collecting system with well opacified right ureter. Mild ectasia of the distal right ureter. No ureteral filling defect or asymmetric urothelial thickening. Bladder is otherwise unremarkable. Gastrointestinal Tract: No wall thickening or abnormal dilatation. Appendix is normal in appearance. Peritoneal Cavity and Surfaces, Retroperitoneum: No free fluid. No free intraperitoneal air. No peritoneal or retroperitoneal masses. Abdominal and Pelvic Vasculature: Patent. Lymph Nodes: No retroperitoneal, mesenteric or pelvic lymphadenopathy. Pelvic Organs: Partially visualized right prosthetic testicle. Abdominal Wall: No hernias or other abnormalities. Osseous Structures:No aggressive appearing osseous lesions. 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 No evidence to suggest obstruction. Bilateral nonobstructing renal calculi. Workstation ID: [id number] [facility] CT UROGRAM EXAMINATION: CT UROGRAM HISTORY: ORDERING SYSTEM PROVIDED HISTORY: h/o bilateral kidney stones, known duplicated collecting system and unknown reconstructive surgery on the bladder as , TECHNOLOGIST PROVIDED HISTORY: Reason for exam: c/o LT groin pain, passed a renal stone 1 week ago, has large stones in bilat. kidneys Illness/Other Encounter Type: Initial Additional signs and symptoms: intermittent Bilateral flank pain ORDERING SYSTEM PROVIDED DIAGNOSIS CODES: N20.0 Kidney stone COMPARISON: None TECHNIQUE: CT urogram examination of the abdomen and pelvis. Images were obtained prior to and following the administration of intravenous contrast. Coronal and sagittal reformations were performed. Additional 3D reconstructions were rendered. Dose reduction techniques were achieved by using automated exposure control and/or adjustment of mA and/or kV according to patient size and/or use of iterative reconstruction technique. CONTRAST: IOPAMIDOL 76 % INTRAVENOUS SOLUTION - 120 mL, FINDINGS: Lung bases: Clear. Liver:Visualized portions are normal in enhancement.No hepatic masses are identified. Liver Vasculature: The portal and hepatic veins are patent. Biliary Tree and Gallbladder: No intrahepatic or extrahepatic bile duct dilatation. The gallbladder is present. Pancreas: Normal in size without masses or ductal dilatation. No peripancreatic inflammatory changes. Spleen:Normal in size without focal lesions. Adrenal Glands: Normal bilaterally. Kidneys: Symmetric in enhancement. Slight asymmetric enlargement of the left kidney. 11 mm hypodense left renal lesion, likely a simple cyst. Subcentimeter hypodensity within the right kidney is too small to characterize. Bilateral nonobstructing renal calculi are evident. The largest calculus within the right kidney measures up to 7 mm in diameter within the upper pole. The largest calculus within the left kidney measures up to 6 mm in diameter within the lower pole. 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 The upper pole moiety is normal in caliber and is well opacified to the level of the bladder. There is mild pelvocaliectasis of the lower pole moiety with mild dilation of the distal left ureter. Single right renal collecting system with well opacified right ureter. Mild ectasia of the distal right ureter. No ureteral filling defect or asymmetric urothelial thickening. Bladder is otherwise unremarkable. Gastrointestinal Tract: No wall thickening or abnormal dilatation. Appendix is normal in appearance. Peritoneal Cavity and Surfaces, Retroperitoneum: No free fluid. No free intraperitoneal air. No peritoneal or retroperitoneal masses. Abdominal and Pelvic Vasculature: Patent. Lymph Nodes: No retroperitoneal, mesenteric or pelvic lymphadenopathy. Pelvic Organs: Partially visualized right prosthetic testicle. Abdominal Wall: No hernias or other abnormalities. Osseous Structures:No aggressive appearing osseous lesions. 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 No evidence to suggest obstruction. Bilateral nonobstructing renal calculi. Workstation ID: [id number] Dictated by: PURA FORD on MonFeb 19, 2019 12:05:21 PM EDT Transcribed by: PURA FORD on MonFeb 19, 2019 12:05:21 PM EDT Finalized by: PURA FORD on MonFeb 19, 2019 12:05:21 PM EDT [facility] Comment on above: Order Comment: h/o b ilateral kidney stones, known duplicated collecting system and unknown reconstructive surgery on the bladder as infant Reason for exam?:c/o LT groin pain, passed a renal stone 1 week ago, has large stones in bilat. kidneys Injury/Trauma or Illness?:Illness/Other How long have you had these symptoms (acute/chronic)?:Acute Type of Exam?:Initial Additional signs and symptoms?:intermittent Bilateral flank pain POC Urinalysis Dipstick,Non- autoon 02-19-2019 Bilirubin Ql (U) Negative Negative [facility] Glucose Ql (U) Negative Normal, Negative mg/dL [facility] Hemoglobin Ql (U) Negative Negative [facility] Interpretation and review of laboratory results Normal [facility] Ketones Ql (U) Negative Negative mg/dL [facility] Leukocyte esterase Test strip Ql (U) Negative Negative [facility] Nitrite Ql (U) Negative Negative [facility] pH (U) 6.0 [pH] [facility] Protein Ql (U) Negative Negative mg/dL [facility] Specific gravity Relative Density (U) 1.005 [facility] Urobilinogen Qn (U) 0.2 mg/dL <2.0, 0. 2, Normal, Negative, 1.0, 2.0, <1.0 [facility] US TESTICLE WITH COLOR FLOWo n 02-19-2019 1. No left-sided testicular torsion or mass identified. 2. Right testicular implant. [facility]/lab Workstation ID: [id number] [facility] EXAMINATION: US TESTICLE WITH COLOR FLOW HISTORY: ORDERING SYSTEM PROVIDED HISTORY: left testicle pain, right testicle implant, TECHNOLOGIST PROVIDED HISTORY: Reason for exam: Left groin pain x4 days Illness/Other Cancer History: no Surgery, RadiationHistory: no Encounter Type: Initial Additional signs and symptoms: . ORDERING SYSTEM PROVIDED DIAGNOSIS CODES: N50.819 Testes pain left testicle pain, right testicle implant. COMPARISON: CT urogram 02/19/2019. TECHNIQUE: Duplex sonography of the testicles included campos-scale, color flow, and spectral waveform analysis. FINDINGS: In the right aspect of the scrotum, there is marked shadowing from testicular implant. Left epididymis measures 1.7 x 0.7 x 1.8 cm and appears homogeneous. Left testicle measures 5.1 x 2.6 x 3.6 cm and appears homogeneous. No testicular mass is seen. No hydrocele or varicocele identified. Spectral Flow and Color Doppler Evaluation: There is normal arterial inflow and venous outflow to the left testicle. Resistive index is 0.63. [facility] Interface, Rad In Fu ji Speechq - 02/19/2019 1:20 PM EDT EXAMINATION: US TESTICLE WITH COLOR FLOW HISTORY: ORDERING SYSTEM PROVIDED HISTORY: left testicle pain, right testicle implant, TECHNOLOGIST PROVIDED HISTORY: Reason for exam: Left groin pain x4 days Illness/Other Cancer History: no Surgery, RadiationHistory: no Encounter Type: Initial Additional signs and symptoms: . ORDERING SYSTEM PROVIDED DIAGNOSIS CODES: N50.819 Testes pain left testicle pain, right testicle implant. COMPARISON: CT urogram 02/19/2019. TECHNIQUE: Duplex sonography of the testicles included campos-scale, color flow, and spectral waveform analysis. FINDINGS: In the right aspect of the scrotum, there is marked shadowing from testicular implant. Left epididymis measures 1.7 x 0.7 x 1.8 cm and appears homogeneous. Left testicle measures 5.1 x 2.6 x 3.6 cm and appears homogeneous. No testicular mass is seen. No hydrocele or varicocele identified. Spectral Flow and Color Doppler Evaluation: There is normal arterial inflow and venous outflow to the left testicle. Resistive index is 0.63. IMPRESSION: 1. No left-sided testicular torsion or mass identified. 2. Right testicular implant. [facility] Workstation ID: [id number] [facility] US TESTICLE WITH COLOR FLOW EXAMINATION: US TESTICLE WITH COLOR FLOW HISTORY: ORDERING SYSTEM PROVIDED HISTORY: left testicle pain, right testicle implant, TECHNOLOGIST PROVIDED HISTORY: Reason for exam: Left groin pain x4 days Illness/Other Cancer History: no Surgery, RadiationHistory: no Encounter Type: Initial Additional signs and symptoms: . ORDERING SYSTEM PROVIDED DIAGNOSIS CODES: N50.819 Testes pain left testicle pain, right testicle implant. COMPARISON: CT urogram 02/19/2019. TECHNIQUE: Duplex sonography of the testicles included campos-scale, color flow, and spectral waveform analysis. FINDINGS: In the right aspect of the scrotum, there is marked shadowing from testicular implant. Left epididymis measures 1.7 x 0.7 x 1.8 cm and appears homogeneous. Left testicle measures 5.1 x 2.6 x 3.6 cm and appears homogeneous. No testicular mass is seen. No hydrocele or varicocele identified. Spectral Flow and Color Doppler Evaluation: There is normal arterial inflow and venous outflow to the left testicle. Resistive index is 0.63. IMPRESSION: 1. No left-sided testicular torsion or mass identified. 2. Right testicular implant. [facility]/lab Workstation ID: [id number] Dictated by: JOANNE BISHOP on MonFeb 19, 2019 11:55:50 AM EDT Transcribed by: ADAL MADRIGAL on MonFeb 19, 2019 1:04:31 PM EDT Finalized by: JOANNE BISHOP on MonFeb 19, 2019 1:17:47 PM EDT [facility] Comment on above: Order Comment: left testicle pain, right testicle implant Reason for exam?:Left groin pain x4 days Injury/Trauma or Illness?:Illness/Other How long have you had these symptoms (acute/chronic)?:Unknown History of cancer?:no Surgeries, chemotherapy, or radiation?:no Type of Exam?:Initial Additional signs and symptoms?:. Otheron 02-11-2019 Bilateral nonobstructing nephrolithiasis. 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 Left ureterocele. Mild postvoid bladder residual. [facility]/[address] Workstation ID: [id number] [facility] EXAMINATION: RETROPERITONEAL ULTRASOUND OF THE KIDNEYS AND URINARY BLADDER 02/11/2019 COMPARISON: None. HISTORY: ORDERING SYSTEM PROVIDED HISTORY: passed renal stone, duplex kidney; TECHNOLOGIST PROVIDED HISTORY: Reason for Exam: passed renal stone, duplex kidney Illness/Other Acuity: Unknown Cancer History: no Surgery, Radiation History: no Type of Encounter: Initial Additional signs and symptoms: ORDERING SYSTEM PROVIDED DIAGNOSIS CODES: Q63.8 Duplex kidney FINDINGS: KIDNEYS: The right kidney measures 10.5 cm in length and the left kidney measures 13.3 cm in length. The echogenicity of the renal parenchyma is normal. Shadowing echogenic foci are seen associated with both kidneys compatible with nonobstructing stones. Superiorly in the right kidney, there is a 1.4 cm calculus. Inferiorly in the left kidney, there is a 1 cm calculus. 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 No solid renal mass is seen. BLADDER: At the time of imaging, the bladder had a volume of 940 mL of fluid. Bilateral ureteral jets were noted. No bladder mass or calculus is seen. Left-sided ureterocele is present. Postvoid bladder volume was calculated at 192 mL of fluid. [facility] Interface, Rad In Fu ji Speechq - 02/11/2019 2:52 PM EDT EXAMINATION: RETROPERITONEAL ULTRASOUND OF THE KIDNEYS AND URINARY BLADDER 02/11/2019 COMPARISON: None. HISTORY: ORDERING SYSTEM PROVIDED HISTORY: passed renal stone, duplex kidney; TECHNOLOGIST PROVIDED HISTORY: Reason for Exam: passed renal stone, duplex kidney Illness/Other Acuity: Unknown Cancer History: no Surgery, Radiation History: no Type of Encounter: Initial Additional signs and symptoms: ORDERING SYSTEM PROVIDED DIAGNOSIS CODES: Q63.8 Duplex kidney FINDINGS: KIDNEYS: The right kidney measures 10.5 cm in length and the left kidney measures 13.3 cm in length. The echogenicity of the renal parenchyma is normal. Shadowing echogenic foci are seen associated with both kidneys compatible with nonobstructing stones. Superiorly in the right kidney, there is a 1.4 cm calculus. Inferiorly in the left kidney, there is a 1 cm calculus. 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 testicle Start: 02-19-2019 End: 02-19-2019 Documentation procedure Rebeka Lee [facility] Start: 02-19-2019 End: 02-20-2019 Patient encounter procedure PHOENIXCHARLEY NELSON [facility] Start: 02-19-2019 End: 02-19-2019 Subsequent hospital visit by physician Phoenix Nelson Work Phone: [facility] Ultrasound Comment on above: Testes pain Kidney stone Start: 02-19-2019 End: 02-19-2019 Office outpatient new 60 minutes Phoenixcharley Rodriguez Nelson Work Phone: [facility] Comment on above: Kidney stone (Primar y Dx); Testes pain; Undescended testicle, unspecified laterality, unspecified location; Orchitis Start: 02-11-2019 End: 02-12-2019 Patient encounter procedure GREYSON BRAND COLOPY [facility] Start: 02-11-2019 End: 02-11-2019 Patient encounter procedure Greyson Sunday Colopy Work Phone: [facility] Comment on above: Duplex kidney Start: 02-11-2019 End: 02-11-2019 Office outpatient visit 25 minutes Greyson Brand Colopy Work Phone: [facility] Comment on above: Kidney stone (Primar y Dx); Duplex kidney; History of undescended testicle; History of hernia repair Start: 12-23-2018 End: 12-23-2018 Office outpatient visit 25 minutes Sandra Adutwum Work Phone: [facility] Comment on above: Upper respiratory tr act infection, unspecified type (Primary Dx); Fatigue, unspecified type Start: 11-16-2018 End: 11-16-2018 Emergency department patient visit GREYSON BRAND COLBRADY [facility] Start: 07-30-2018 End: 07-30-2018 Patient encounter JENNIFER FRANZ [facility] Start: 05-04-2018 End: 05-04-2018 Office outpatient visit 25 minutes Greyson Brand Colopy Work Phone: [facility] Start: 02-06-2018 Office/outpatient vi sit, est, level 4 Greysonlorena Brand Colopy Work Phone: [facility] Start: 07-07-2017 Patient encounter status Maykel Nelson MD Work Phone: [facility] Start: 07-07-2017 Prev visit, new, age 18-39 Greysonlorena Brand Colopy Work Phone: [facility] Patient encounter status Keaton Valerio DO Work Phone: [facility] Work Phone: Patient encounter status Sulma Torres MA [facility]; [facility] Work Phone: Patient encounter status Marcello Richardson MA [facility]; [facility] Work Phone: Patient encounter status Serena Manabe BARLOW [facility]; [facility] Work Phone: Procedures Date Procedure Procedure Detail Performing Clinician Start: 10-01-2024 Radiologic exam chest 2 views Renée wells APRN.[employer] Work Phone: Start: 10-01-2024 STREP A MOLECULAR (POC) [facility] Provider Start: 07-29-2024 Radiologic exam chest 2 views Pearl Rincon APRN.[employer] Work Phone: Start: 06-17-2024 PSA screening CALLI VALERIO Comment on above: Result Comment: Per the National Compreh ensive Cancer Network (NCCN) Guidelines: . Repeat testing every 1-2 years . PSA> 3.0 ng/ml is positive regardless of age . PSA normal values are based upon a patient with a normal Digital Rectal Exam (MAX). A MAX suspicious for cancer at any PSA level is an indication for biopsy. . Any serum PSA level in a patient previously treated for prostate cancer should be interpreted with caution. . NCCN guidelines do not apply to men <45 years old. A PSA result of 1-3 ng/ml may be positive in these men and should be interpreted with care. Assay performed by [facility], Electrochemiluminescence Immunoassay. Patient results determined by assays using different instrumentation may not be comparable. Performed By: #### [id number] #### [facility] [address] [place] [address] Edvin Castellanos M.D. [id number] Start: 02-02-2022 SARS-CoV-2 & FLU Antigen (Rapid) Start: 04-21-2020 Radiologic exam chest single view LISA OPHER GOLIVER Start: 04-21-2020 Assay of troponin quantitative WILLIE ER GOLIVER Start: 04-21-2020 Basic metabolic panel calcium total OPHER GOLIVER Start: 04-21-2020 Blood count complete auto&auto difrntl wbc OPHER GOLIVER Start: 04-21-2020 Creatine kinase mb fraction only NEO PHER IVER Start: 04-21-2020 Creatine kinase total OPHER GOLIVE R Start: 04-21-2020 Fibrin dgradj products d-dimer quantitative OPHER GOLIVER Start: 04-21-2020 Myoglobin CHRISTOPHER GOLIVER Start: 04-21-2020 Ecg routine ecg w/least 12 lds w/i&r OPHER GOLIVER Start: 04-21-2020 TELEMETRY MONITORING CHRISTOPHER GOLIVER Start: 04-21-2020 INSERT PERIPHERAL IV OPHER GOLIVER Start: 04-21-2020 Urnls dip stick/tablet rgnt auto w/o microscopy OPHER GOLIVER Start: 04-21-2020 Radiologic exam chest single view Lisa opher Goliver Start: 04-21-2020 Assay of troponin quantitative Willie er Goliver Start: 04-21-2020 Basic metabolic panel calcium total Christopher Goliver Start: 04-21-2020 Blood count complete auto&auto difrntl wbc Christopher Goliver Start: 04-21-2020 CK.MB [Mass/Vol] Christopher Goliver Start: 04-21-2020 Creatine kinase total Christopher Golive r Start: 04-21-2020 Fibrin dgradj products d-dimer quantitative Randa Hernandez Start: 04-21-2020 Myoglobin Randa Hernandez Start: 05-06-2019 Adult depression screening assessment Greyson opy Start: 04-23-2019 CT of urinary tract Phoenix Nelson Work Phone: Start: 03-14-2019 Basic metabolic 2000 panel - Serum or Plasma Phoenix Nelson Work Phone: Start: 03-14-2019 Complete blood count (hemogram) panel - Blood by Automated count Phoenix Nelosn Work Phone: Start: 03-13-2019 End: 03-13-2019 NEPHROSTOMY PERCUTANEOUS Phoenix Nelson Work Phone: Start: 03-12-2019 CV IR RIGHT NEPHROSTOMY TUBE INSERT Phoenix Nelson Work Phone: Start: 02-19-2019 Doppler ultrasonography of testis Jagdeep Nelson Work Phone: Start: 02-19-2019 CT of urinary tract with contrast Jagdeep Nelson Work Phone: Start: 02-19-2019 Urinalysis macro (dipstick) panel - Urine Phoenix Nelson Work Phone: Start: 02-11-2019 Ultrasonography of retroperitoneum Greyson Brand Colopy Work Phone: Start: 02-11-2019 Urinalysis macro (dipstick) panel - Urine Greyson Brand Colopy Work Phone: Start: 12-23-2018 Influenza virus A antigen assay Sandra Ad utwum Work Phone: Start: 12-23-2018 Influenza virus B antigen assay Sandra Ad utwum Work Phone: Start: 12-23-2018 Streptococcus pyogenes antigen assay Sandra Adutwum Work Phone: Hernia repair Rosalinda Gravius [employer] Comment on above: 1989 Hernia repair Sulma Skelton Comment on above: 1989 Hernia repair Kayela [place] [employer] Comment on above: 1989 Hernia repair Serena Omaira k [employer] Comment on above: 1989 kidney stone removed 2018 Ja smin Brantius [employer] kidney stone removed 2018 La uren Melissa MA kidney stone removed 2018 Ka yeelza [place] [employer] kidney stone removed 2018 Ch elsea Omairak [employer] lesion removal from head Burt min Gravius [employer] lesion removal from head Maher hina Melissa MA lesion removal from head Bonny caleb [place] [employer] lesion removal from head Carmen lsea Manbrysonk [employer] microdisectomy of L5 Rosalinda Gravius [employer] microdisectomy of L5 Sulma Torres MA microdisectomy of L5 Kayela [place] [employer] microdisectomy of L5 Serena Manchak [employer] Reconstruction of urinary bladder Rosalinda Gravius [employer] Comment on above: 2019 Reconstruction of urinary bladder Sulma Torres MA Comment on above: 2019 Reconstruction of urinary bladder Gioyela [place] [employer] Comment on above: 2019 Reconstruction of urinary bladder Serena Manchak [employer] Comment on above: 2019 testicle implant 2006 Rosalinda Gravius [employer] testicle implant 2006 Sulma Torres MA testicle implant 2006 Kayela [place] [employer] testicle implant 2006 Chelse a Omairak [employer] tonsilectomy Rosalinda Gravius [employer] Comment on above: removed adnoids as well 2004 tonsilectomy Sulma Torres MA Comment on above: removed adnoids as well 2004 tonsilectomy Lavona [place] [employer] Comment on above: removed adnoids as well 2004 tonsilectomy Serena Mianchak [employer] Comment on above: removed adnoids as well 2003 Plan of Treatment Date Care Activity Detail Author Start: 05-06-2025 Tetanus vaccination Idi [facility] Start: 05-06-2025 Urine microalbumin profile DTaP,Tdap,Td Vaccine (7 - Td or Tdap) [facility] Start: 06-30-2024 Covid-19 Vaccine ( season) Covid-19 Vaccine () [facility] Start: 06-30-2024 Influenza vaccination Influenza Vacc ine (#1) [facility] Start: 06-17-2024 End: 06-17-2025 Bacteria identified in Unspecified specimen by Aerobe culture [facility] Comment on above: Expected: 06/17/2024 (Approximate), Expires: 06/17/2025 Start: 06-30-2023 COVID-19 Vaccine ( season) COVID-19 Vaccine ( season) [facility] Start: 06-23-2023 Procedure Education Eprescribe d prescriptions (G8553) [facility] Work Phone: Start: 11-18-2022 Procedure Education Eprescribe d prescriptions (G8553) [facility] Work Phone: Start: 04-29-2022 Procedure Education Eprescribe d prescriptions (G8553) [facility] Work Phone: Start: 04-29-2022 Glucose quantitative blood xcpt reagent strip GLUCOSE ([id number]) [facility] Work Phone: Start: 04-29-2022 Lipid panel LIPID PANEL ([id number]) [facility]; [facility] Work Phone: Start: 02-02-2022 Streptococcus pyogen es antigen assay Group A Streptococcus Rapid Screen [facility] Work Phone: Start: 06-30-2020 Influenza vaccination Flu vacc ine (Season Ended) [place], [place] Start: 06-30-2020 Influenza vaccinatio n given [facility] Start: 05-06-2020 Depression screening using PHQ-9 (Patient Health Questionnaire 9) score [facility] Start: 06-30-2019 Influenza vaccinatio n given [facility] Start: 04-23-2019 End: 04-23-2019 Appointment 04/23/2019 Appointment Radiology Phoenix Nelson MD [address] [place] [address] [facility] [address] Scan Start: 04-02-2019 End: 04-02-2020 CT of urinary tract CT Kidney Stone Imaging STAT Kidney stone Expected: 04/02/2019, Expires: 04/02/2020 [facility] Comment on above: Expected: 04/02/2019 , Expires: 04/02/2020 Start: 04-02-2019 End: 04-02-2019 Procedure visit 04/02/2019 Procedure visit Urology Phoenix Nelson MD [address] [place] [address] [phone] [facility] Start: 03-13-2019 End: 03-13-2019 Hospital Encounter [facility] Comment on above: Kidney stone RIGHT PERCUTANEOUS N EPHROLITHOTOMY, POSSIBLE STENT PLACEMENT Start: 03-07-2019 Hospital Encounter 03/07/2019 Hospital Encounter Phoenix Nelson MD [address] [id number] Kidney stone [facility] Comment on above: Kidney stone Start: 03-06-2019 Hospital Encounter [facility] Comment on above: Kidney stone IR NEPHROSTOMY RIGHT TUBE INSERT Start: 02-19-2019 End: 02-20-2020 CT of urinary tract with contrast CT Urogram STAT Kidney stone Expected: 02/19/2019, Expires: 02/20/2020 [facility] Comment on above: Expected: 02/19/2019 , Expires: 02/20/2020 Start: 02-19-2019 End: 08-21-2020 Doppler ultrasonography of testis US Testicle With Color Flow STAT Testes pain Expected: 02/19/2019 (Approximate), Expires: 08/21/2020 [facility] Comment on above: Expected: 02/19/2019 (Approximate), Expires: 08/21/2020 Start: 02-19-2019 Hospital Encounter 02/19/2019 Hospital Encounter Radiology Phoenix Nelson MD [address] [address] [phone] Testes pain [facility] Ultrasound Comment on above: Testes pain Start: 07-07-2018 History and physical examination, annual for health maintenance Wellness Visit [facility] Start: 06-30-2018 Influenza vaccination SEQUENTI AL INFLUENZA VACCINE (#1) [facility] Start: 06-30-2018 Influenza vaccinatio n given SEQUENTIAL INFLUENZA VACCINE (#1) [facility] Start: 2009 DTaP/Tdap/Td vaccine (1 - Tdap) DTaP/Tdap/Td vaccine (1 - Tdap) [facility] Start: 2009 Hepatitis B Vaccine (1 of 3 - 19+ 3-dose series) Hepatitis B Vaccine (1 of 3 - 19+ 3-dose series) [facility] Start: 2008 Anxiety Screening Anxiety Screening [facility] Start: 2008 Depression Screening Depression Scre ening [facility] Start: 2008 Hepatitis C antibody , confirmatory test Hepatitis C Screening [facility] Start: 2008 Hepatitis C screening Hepatitis C Sc reening [facility] Start: 2008 HIV screening HIV Screening [facility] Start: 2005 HIV screening [facility] Start: 1991 Varicella vaccine (1 of 2 - 2-dose childhood series) Varicella vaccine (1 of 2 - 2-dose childhood series) [place], [place] Start: 1990 Depression screening using PHQ-9 (Patient Health Questionnaire 9) score DEPRESSION SCREENING (PHQ9) [facility] Start: 1990 Screening for substa nce abuse SUBSTANCE ABUSE SCREENING (AUDIT-C) [facility] ALERE STREP A TEST (AG) ALERE ST REP A TEST (AG) Lab Routine Sore throat Ordered: 10/01/2024 [facility] Work Phone: Comment on above: Ordered: 10/01/2024 End: 02-11-2020 Basic metabolic 2000 panel Basic Metabolic Panel Routine Kidney stone Duplex kidney 1 Occurrences starting 02/11/2019 until 02/11/2020 [facility] Comment on above: 1 Occurrences starti ng 02/11/2019 until 02/11/2020 End: 07-07-2018 Comprehensive metabolic panel [AGGREGATE] Comprehensive Met[facility] Panel Routine Duplex kidney 1 Occurrences starting 07/07/2017 until 07/07/2018 [facility] Work Phone: Comprehensive metabo lic panel [AGGREGATE] [facility] Routine Duplex kidney 07/07/2017 9:09 AM EDT [facility] Work Phone: COVID & INFLUENZA A/ B & RSV PCR, ROUTINE COVID & INFLUENZA A/B & RSV PCR, ROUTINE Microbiology Routine URI, acute Ordered: 07/29/2024 [facility] Work Phone: Comment on above: Ordered: 07/29/2024 CT of urinary tract CT Kidney St one Imaging STAT Kidney stone 04/23/2019 4:42 PM EDT [facility] CT of urinary tract with contrast CT Urogram STAT Kidney stone 02/19/2019 10:17 AM EDT [facility] Doppler ultrasonogra phy of testis US Testicle With Color Flow STAT Testes pain 02/19/2019 11:26 AM EDT [facility] End: 02-24-2020 IR Nephrostomy Tube Placement Right IR Nephrostomy Tube Placement Right Routine Kidney stone 1 Occurrences starting 02/23/2019 until 02/24/2020 [facility] Comment on above: 1 Occurrences starti ng 02/23/2019 until 02/24/2020 Kidney Stone Analysis [facility] Comment on above: Once for 1 Occurrenc es starting 03/13/2019 Once for 1 Occurrenc es starting 03/28/2019 End: 02-12-2020 Kidney Stone Analysis Kidney Stone Analysis Routine Kidney stone 1 Occurrences starting 02/11/2019 until 02/12/2020 [facility] Comment on above: 1 Occurrences starti ng 02/11/2019 until 02/12/2020 Patient Education ED URI, Viral, No Abx (Adult) [facility] Work Phone: Patient referral [facility] Work Phone: End: 03-13-2019 Procedure on tissue specimen Tissue Exam STAT Once for 1 Occurrences starting 03/13/2019 until 03/13/2019, 1 completed [facility] Comment on above: Once for 1 Occurrenc es starting 03/13/2019 until 03/13/2019, 1 completed Procedure on tissue specimen [facility] End: 03-28-2019 Procedure on tissue specimen Tissue Exam Pathology and Cytology STAT Once for 1 Occurrences starting 03/28/2019 until 03/28/2019, 1 completed [facility] Comment on above: Once for 1 Occurrenc es starting 03/28/2019 until 03/28/2019, 1 completed End: 06-17-2025 Prostate specific Ag [Mass/volume] in Serum or Plasma PSA, Tumor Marker Lab Routine Perineal pain 1 Occurrences starting 06/17/2024 until 06/17/2025 [facility] Work Phone: Comment on above: 1 Occurrences starti ng 06/17/2024 until 06/17/2025 Prostate specific Ag [Mass/volume] in Serum or Plasma PSA, Tumor Marker Lab Routine Perineal pain 06/17/2024 10:13 AM EDT [facility] End: 03-13-2019 Retrograde pyelogram XR OR Retrograde Pyelogram Routine Kidney calculus Once for 1 Occurrences starting 03/13/2019 until 03/13/2019 [facility] Comment on above: Once for 1 Occurrenc es starting 03/13/2019 until 03/13/2019 Retrograde pyelogram [facility] End: 03-28-2019 Retrograde pyelogram XR OR Retrograde Pyelogram Imaging Routine Kidney calculus Once for 1 Occurrences starting 03/28/2019 until 03/28/2019 [facility] Comment on above: Once for 1 Occurrenc es starting 03/28/2019 until 03/28/2019 End: 02-06-2019 Semen Analysis(WHO5 Morphology) Semen Analysis(WHO5 Morphology) Routine Fertility testing 1 Occurrences starting 02/06/2018 until 02/06/2019 [facility] End: 04-21-2020 Urinalysis Urinalysis Lab STAT One Time for 1 Occurrences starting 04/21/2020 until 04/21/2020 [facility] [place] Comment on above: One Time for 1 Occur rences starting 04/21/2020 until 04/21/2020 End: 02-12-2020 Urinalysis Urinalysis with microscopic Routine Kidney stone 1 Occurrences starting 02/11/2019 until 02/12/2020 [facility] Comment on above: 1 Occurrences starti ng 02/11/2019 until 02/12/2020 Immunizations Immunization Date Immunization Notes Care Provider Missy winter 07-07-2017 influenza virus vacc ine, unspecified formulation Phoenix Nelson MD Work Phone: [facility] 05-06-2015 tetanus toxoid, redu deloris diphtheria toxoid, and acellular pertussis vaccine, adsorbed Greyson Colopy [facility] Work Phone: 08-20-2013 influenza, seasonal, injectable Greyson Colopy [facility] 08-20-2013 influenza virus vacc ine, unspecified formulation Bevelry Bryant APRN.[employer] Work Phone: [facility] 12-18-2008 hepatitis A vaccine, unspecified formulation Greyson Colopy [facility] Work Phone: 09-15-2008 influenza virus vacc ine, whole virus [facility] 05-13-2008 hepatitis A vaccine, unspecified formulation [facility] Work Phone: 05-13-2008 meningococcal polysaccharide vaccine (MPSV4) [facility] Work Phone: 05-06-2005 tetanus and diphther ia toxoids, adsorbed, for adult use [facility] Work Phone: 08-23-1996 influenza virus vacc ine, unspecified formulation [facility] Work Phone: 11-09-1995 measles, mumps and rubella virus vaccine [facility] Work Phone: 10-19-1994 [facility]1994 hepatitis B immune [facility] 03-25-1994 hepatitis B immune globulin [facility] 1992 chicken pox (disease) Antonio Bryant APRN.[facility] Work Phone: [facility] 1992 varicella virus vaccine [facility] 11-06-1991 DTaP [facility] Work Phone: 11-06-1991 poliovirus vaccine, live, oral [facility] Work Phone: 09-11-1991 haemophilus influenz ae type b vaccine, HbOC conjugate [facility] Work Phone: 09-11-1991 measles, mumps and rubella virus vaccine [facility] Work Phone: 04-12-1991 haemophilus influenz ae type b vaccine, HbOC conjugate [facility] Work Phone: 01-18-1991 haemophilus influenz ae type b vaccine, HbOC conjugate [facility] Work Phone: 1990 DTaP [facility] Work Phone: 1990 haemophilus influenz ae type b vaccine, HbOC conjugate [facility] Work Phone: 1990 DTaP Greyson Colopy [facility] Work Phone: 1990 poliovirus vaccine, live, oral [facility] Work Phone: 1990 DTaP Greyson Colopy [facility] Work Phone: 1990 poliovirus vaccine, live, oral Greyson [facility] Work Phone: Payers Date Payer Category Payer Self-pay [id number] Unknown 2021 Unknown [id number] 2015 Unknown [id number] 2. [id number] 2015 Unknown [id number] 1990 Unknown [id number] 2.16.8 40.1.866555.3.579.2.3 1990 Unknown [id number] 2.16.8 40.1.363290.3.579.2. 1990 Unknown [id number] 2.16.8 40.1.826751.3.579.2. 1990 Unknown [id number] 2.16.8 40.1.760401.3.579.2. 1990 Unknown [id number] 2.16.8 40.1.947916.3.579.2. 1990 Unknown [id number] 2.16.8 40.1.215007.3.579.2.2 1990 Unknown [id number] 2.16.8 40.1.323643.3.579.2.902 1990 Unknown [id number] 2.16.8 40.1.867252.3.579.2.902 1990 Unknown [id number] 2.16.8 40.1.411612.3.579.2.902 1990 Unknown [id number] 2.16.8 40.1.400011.3.579.2.902 1990 Unknown [id number] 2.16.8 40.1.489411.3.579.2.903 1990 Unknown [id number] 2.16.84 0.1.301126.3.579.2.716 1990 Unknown [id number] 2.16. 840.1.982804.3.579.2.903 1990 Unknown [id number] 2.16. 840.1.677703.3.579.2.900 Unknown [id number] 2.16. 840.1.714840.3.249.13 Unknown [id number] 2.16. [id number] Unknown [id number] 2. [id number] Self-pay SELF PAY INSURANCE [id number] Unknown [id number] Unknown [id number] 2.16.8 [id number] Unknown [id number] 2.16.8 [id number] Social History Date Type Detail Facility Start: 02-06-2018 End: 06-12-2024 Tobacco smoking status OHIS Never smoker [facility] Start: 1990 Sex Assigned At Not on file [employer] Work Phone: Start: 04-23-2016 Alcohol Comment Rarely [facility] Exposure to SARS-CoV -2 (event) Unable to assess [facility]- [place], [place] Start: 04-28-2020 End: 06-17-2024 Alcohol intake Ex-drinker (finding) [facility] Start: 05-06-2019 History SDNM Social Connections Membership 2 [facility] Start: 05-06-2019 History [facility] Social Connections Meetings 1 [facility] Exposure to SARS-CoV -2 (event) Not sure [facility] Start: 02-02-2022 Tobacco smoking stat us OHIS Unknown if ever smoked [facility] Work Phone: Start: 1990 Sex Assigned At Male W [facility] Alcohol Use: Alcohol Use: [facility] Work Phone: Start: 05-06-2019 End: 10-01-2024 Caffeine Use Caffeine Use [facility]; [facility] Work Phone: Comment on above: 2x coffee very occational ciga r smoker Exercise History: Exercise History: [facility]pr [facility]; [facility] Work Phone: Comment on above: 3x wkly Living Situation: Living Situation: [facility] Work Phone: Comment on above: spouse and 2 childre n Start: 06-17-2024 End: 07-29-2024 Tobacco use and exposure Smokeless tobacco non-user [facility] Start: 05-06-2019 End: 10-01-2024 Social connection and isolation panel [facility] Frequency of Communication with Friends and Family Not on file [facility] (I/We) worried wheth er (my/our) food would run out before (I/we) got money to buy more. Never true [facility] Start: 02-25-2019 Gender identity Identifies as male gender (finding) [facility] Start: 02-25-2019 Sexual orientation Heterosexual (fin elbert) [facility] History of tobacco use Passive smoker [facility] Start: 07-29-2024 End: 10-01-2024 Alcoholic beverage intake Current non-drinker of alcohol (finding) [facility] Start: 02-05-2025 Sex Male (finding) [facility] Medical Equipment Procedure Code Equipment Code Equipment Origin al Text Equipment Identifier Dates Stent 6fr 22-32c m Ureteral Avella - S. Start: 03-13-2019 Stent 6fr 22-32c m Ureteral Avella - S. Start: 03-13-2019 Stent 6 X 30 Tm Ultra Polaris - Sn/A [id number] Start: 03-28-2019 Stent 6 X 30 Tm Ultra Polaris - Sn/A [id number] Start: 03-28-2019 Stent 6fr 22-32c m Ureteral Avella - S. [id number] Start: 03-28-2019 Comment on above: Description: TAKEN O UT FOR PROCEDURE AND THEN REPLACED WITH POLARIS [id number] Stent 6fr 22-32c m Ureteral Avella - S. [id number] Start: 03-13-2019 Comment on above: Description: TAKEN O UT FOR PROCEDURE AND THEN REPLACED WITH POLARIS [id number] Mental Status Date Assessment Result Facility 02-02-2022 Cognitive function Level Of Cons ciousness Awake;Alert;Follows Commands [facility] Work Phone: Clinical Notes 06-17-2024 to 10-01-2024 Aleyda Landry RT(R) - 10/01/2024 11:40 AM Renée Farley APRN.VEL - 10/01/2024 11:38 AM ESTTelephone Jie - Irene Barlow RN - 07/30/2024 8:13 AM EDT Note Date & Type Note Facility 10-01-2024 History of Presen t illness Narrative Radiology Service Progress Note PATIENT NAME: Kingsley Weiss [place] DATE OF SERVICE: October 01, 2024 TIME: 12:21 PM PATIENT IDENTITY VERIFICATION COMPLETED USING TWO (2) IDENTIFIERS: Name and Date of confirmed by patient verbally. FALL SCREENING: Has the patient had 2 falls in the last year or 1 fall with injury or currently using an Ambulatory Assistive Device (Walker, Cane, Wheelchair, Crutches, etc.)? No PATIENT GENDER DATA: Male PATIENT RELEVANT IMPLANT DATA REVIEWED: Not Applicable PATIENT PRESENTS WITH AN IMPLANTABLE OR ATTACHED MEDICAL RECORD CLERK: No RADIOLOGY DEPARTMENT: General X-ray: Exam(s) Completed: Chest X-Ray PERIPHERAL IV DATA: Not applicable SIGNED BY: RT Rohini(R) October 01, 2024 12:21 PM documented in this encounter [facility] 10-01-2024 Note HNO ID: [id number] Author: ALEYDA LANDRY RT(Lisa) Service: Radiology Author Type: Technologist Type: Progress Notes Filed: 10/01/2024 12:31 Note Text: Radiology Service Progress Note PATIENT NAME: Kingsley Luis DATE OF SERVICE: October 01, 2024 TIME: 12:21 PM PATIENT IDENTITY VERIFICATION COMPLETED USING TWO (2) IDENTIFIERS: Name and Date of confirmed by patient verbally. FALL SCREENING: Has the patient had 2 falls in the last year or 1 fall with injury or currently using an Ambulatory Assistive Device (Walker, Cane, Wheelchair, Crutches, etc.)? No PATIENT GENDER DATA: Male PATIENT RELEVANT IMPLANT DATA REVIEWED: Not Applicable PATIENT PRESENTS WITH AN IMPLANTABLE OR ATTACHED MEDICAL RECORD CLERK: No RADIOLOGY DEPARTMENT: General X-ray: Exam(s) Completed: Chest X-Ray PERIPHERAL IV DATA: Not applicable SIGNED BY: RT Rohini(R) October 01, 2024 12:21 PM [facility] 10-01-2024 Note HNO ID: [id number] Author: RENÉE CANTU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 Allergies: Allergies: Nickel; Latex; Tree nut; and Zithromax [azithromycin] Vitals: PACU Vitals 03/12/19 0852 BP: (!) 142/76 Pulse: 86 Resp: 15 Temp: 98.3 F (36.8 C) SpO2: 100% Laboratory: Mallampati Airway Classification: Class 1. Uvula, faucial pillars, soft palate visible CV: Pulse is regular with regular rate. Lungs: No respiratory distress. No accessory muscle use. No audible wheeze. Laboratory: Lab Results Component Value Date WBC 5.05 02/22/2019 HGB 16.4 02/22/2019 HCT 47.9 02/22/2019 MCV 91.4 02/22/2019 PLT 213 02/22/2019 Lab Results Component Value Date GLUCOSE 91 02/22/2019 CALCIUM 9.8 02/22/2019 NA 146 (H) 02/22/2019 K 4.6 02/22/2019 CL 106 02/22/2019 BUN 13 02/22/2019 CREATININE 1.24 02/22/2019 . Protime (PT) Date Value Ref Range Status 02/22/2019 12.8 11.8 - 14.3 seconds Final INR Date Value Ref Range Status 02/22/2019 1.0 0.8 - 1.1 Final Preprocedural ASA: A I (Normal, healthy patient) Didi Lopez MD 03/12/2019 documented in this encounter Lorena May RN - 03/05/2019 2:24 PM EDT Nursing Notes (unrecognized section and content) Patient Instructions for [facility]: Prior to surgery: Please call the Outpatient Surgery Department at or [phone] between 1:00pm and 5:00pm the business day before your surgery to verify the time you should arrive at the hospital (if we have not already contacted you). Do not eat or drink anything after 12:00 (midnight) the night before your surgery. This includes water, coffee, candy, gum, and mints. Your surgeon may have given you special eating and drinking instructions based upon the surgery you are having - if so, please be sure to follow those instructions. You may brush your teeth the morning of surgery, and rinse your mouth out - but do not swallow any water. Take a bath or shower the night before or the morning of your surgery. It is recommended that you do not smoke after midnight the night before your surgery. Do not drink any alcohol the day before your surgery. Please bring a complete list of all of your medications including name, dosage, and frequency with you the day of your surgery. Do not take any medications after midnight the night before your surgery except for the following: Blood Pressure Medications Beta Blockers Seizure Medications You may take these medications the morning of surgery with a small sip (1-2 ounces) of water if you normally take them in the morning. If you are currently using any inhalers it is ok for you to use them as normal if needed. Any other medications please check with your physician or the Outpatient Surgery Department to verify whether or not you should take them the morning of surgery. Pain Medications can be taken up to six hours prior to surgery. Do not take aspirin for seven days prior to your surgery. If you are on any blood thinners (Coumadin, Plavix, etc.) please contact your physician for recommendations of when to stop or not stop these medications. If you have sleep apnea and currently use a C-PAP machine, please bring it with you the day of surgery. Please wear casual, loose fitting clothing to your surgery. Do not wear any jewelry, make-up, nail swedish, or hair pins the day of surgery. All body piercing's must be removed prior to surgery. Please leave all valuables at home. After your surgery: If you are scheduled as an outpatient, a responsible licensed adult must be available for transportation, and is expected to remain at the hospital throughout the duration of your procedure. You are not allowed to drive yourself home. A responsible adult must stay with you for 24 hours following your surgery. If the patient is a child, please bring a favorite security item ([place], Toy, etc.). A parent or guardian must stay in the hospital with a child under the age of 18. Most patients experience discomfort/pain following surgery. We will do our best to control you pain. It is important that you let your nurse know if you are having pain. The nurse will give you medication to help control your pain. If you develop any illness, such as a cold, sore throat, fever, or cough, please call the Outpatient Surgery Department at , , or your surgeon. If you have any questions please call the Outpatient Surgery Department at the numbers listed above. Please note that failure to comply with these instructions could lead to the cancellation of your surgery due to the high probability of serious harm to you. documented in this encounter Didi Lopez MD - 03/12/2019 11:09 AM EDT Procedure Notes (unrecognize d section and content) Vascular & Interventional Radiology [facility]ided [facility] (Diagnostic Radiology, Interventional and Neurointerventional Radiology and Vascular Medicine) Interventional Radiology Department @ [facility]: [phone] 22/05 VIR physician contact: [phone]) Weekday VIR nurse practitioner contact @ [facility]: [phone] [facility]: [phone] [email or web address] ENGINEERING MECH[employer]IC DIRECTORY PROCEDURE: Ultrasound and fluoroscopic guided right sided 5 F right nephrouretal catheter placement. FINDINGS: Ultrasound and pyelogram show mild right sided hydronephrosis PLAN: Capped for procedure tomorrow. Date: 03/12/2019 Physician: Didi Lopez MD Sedation Plan: Moderate ASA Classification: ASA 1 - Normal health patient Mallampati Classification: II (hard and soft palate, upper portion of tonsils anduvula visible) [place] Protocol: Pre-Procedural verification: Correct patient, correct site and correct procedure confirmed. H&P or interval update complete and in medical record. Informed consent form completed and signed. Radiology images, labs and pathology reviewed with appropriate identifiers (when applicable). Site Marking: N/A Time Out: PERFORMED Complications: None Full report to follow documented in this encounter Goals (unrecognized section and content) Goals may be documented in a n alternate sectionGoals may be documented in an alternate section Care Teams (unrecognized sec tion and content) Collections Manager Relationship Specialty Start Date End Date Calli Valerio DO [address] [place] [address] PCP - General Internal Medicine 06/17/24 Phoenix Nelson MD Urologic Surgery 02/19/19 Collections Manager Relationship Specialty Start Date End Date Calli Valerio DO [address] [facility] [address] [place], [place] [id number] PCP - General Internal Medicine 07/29/24 Collections Manager Relationship Specialty Start Date End Date Calli Valerio DO [address] [facility] [address] [place] [address] PCP - General Internal Medicine 07/29/24 Collections Manager Relationship Specialty Start Date End Date Calli Valerio DO [address] [place] [address] PCP - General Internal Medicine 07/29/24 Collections Manager Relationship Specialty Start Date End Date Calli Valerio DO [address] [place], [place] [id number] PCP - General Internal Medicine 07/29/24 Collections Manager Relationship Specialty Start Date End Date Calli Valerio DO [address] [place], [place] [id number] PCP - General Internal Medicine 07/29/24 Team Status: Active Member Role Status Dates Dr. Calli Valerio DO Primary Care Provider Active Team Status: Inactive Member Role Status Dates Dr. Calli Valerio DO Primary Care Provider Active Start: December 13, 2024 End: December 13, 2024 Self Referred Attending Provider Active Start: F ebruary 2024 End: December 13, 2024 Self Referred Referring Provider Active Start: F ebruary 2024 End: December 13, 2024 Source Comments (unrecognize d section and content) In the event this informatio n is protected by the Federal Confidentiality of Alcohol and Drug Abuse Patient Records regulations: The Federal rules restrict any use of the information to criminally investigate or prosecute any alcohol or drug abuse patient.[facility] CenterIn the event this information is protected by the Federal Confidentiality of Alcohol and Drug Abuse Patient Records regulations: The Federal rules restrict any use of the information to criminally investigate or prosecute any alcohol or drug abuse patient.[facility] Center[facility] the event this information is protected by the Federal Confidentiality of Alcohol and Drug Abuse Patient Records regulations: The Federal rules restrict any use of the information to criminally investigate or prosecute any alcohol or drug abuse patient.[facility] Center[facility] the event this information is protected by the Federal Confidentiality of Alcohol and Drug Abuse Patient Records regulations: The Federal rules restrict any use of the information to criminally investigate or prosecute any alcohol or drug abuse patient.[facility] Center[facility] the event this information is protected by the Federal Confidentiality of Alcohol and Drug Abuse Patient Records regulations: The Federal rules restrict any use of the information to criminally investigate or prosecute any alcohol or drug abuse patient.[facility] FOR RECORDS PERTAINING TO PATIENTS WHO ARE OR HAVE BEEN ENROLLED IN A CHEMICAL DEPENDENCY/SUBSTANCEABUSE PROGRAM, SOME INFORMATION MAY BE OMITTED. This clinical summary was aggregated from multiple sources. Caution should be exercised in using it in the provision of clinical care. This summary normalizes information from multiple sources, and as a consequence, information in this document may materially change the coding, format and clinical context of patient data. In addition, data may be omitted in some cases. CLINICAL DECISIONS SHOULD BE BASED ON THE PRIMARY CLINICAL RECORDS. [facility]. provides no warranty or guarantee of the accuracy or completeness of information in this document.
[2025-09-23 09:56] LABS: Hematocrit 44.7 % (40-54); Hemoglobin 16.0 g/dL (13.0-16.5); Immature Granulocytes Count 0.010 X10^3/uL (0.0-0.0); Mean Corp Hgb Conc 35.8 g/dL (32-36); Mean Corpuscular Volume 87.5 fL (80-94); Mean Platelet Vol. 12.6 fl (6.2-12.0); NRBC Flagged by Analyzer 0 % (0-5); Platelet Count 102 K/mm3 (150-450); RBC Distribution Width CV 12.2 % (11.6-14.6); RBC Distribution Width SD 39.5 fl (35.1-43.9); Red Blood Count 5.11 M/mm3 (4.6-6.2); White Blood Count 7.1 K/mm3 (4.4-11.0)
[2025-09-23 13:15] LABS: AST(SGOT) 45 U/L (<=37); Alanine Aminotransfer ALT/SGPT 38 U/L (<=46); Albumin, Serum 4.6 g/dL (3.5-5.0); Alkaline Phosphatase 75 U/L (40-129); Anion Gap 12 (5-15); BUN 16 mg/dL (4-19); BUN/Creat Ratio 18.8 RATIO (10-20); Calcium,Total 9.5 mg/dL (7.6-11.0); Carbon Dioxide 23.8 mmol/L (21.0-32.0); Chloride 106 mmol/L (98-108); Cholesterol 162 mg/dL (<=200); Free T3 3.6 pg/mL (2.18-3.98); Globulin 2.4 g/dL (2.2-4.2); Glucose 102 mg/dL (70-99); Low Density Lipoprotein Calc. 108 mg/dL; Potassium 4.0 mmol/L (3.3-5.1); Triglycerides 54 mg/dL; Very Low Density Lipoprotein 11 mg/dL (5-40); Vitamin B12 777 pg/mL (180-914); Vitamin D,25 Hydroxy 29.6 ng/mL (30-100); cholesterol:hdl ratio screen 3.79
== END | disposition home or self-care (01) ==
LOC: CIMLAB 09:02
PROVIDERS: PCP Internal Medicine; Referring Provider Nurse Practitioner Family; Visit Provider Nurse Practitioner Family
DX: Z00.00 Encounter for general adult medical examination without abnormal findings (principal); L30.9 Dermatitis, unspecified; Z13.220 Encounter for screening for lipoid disorders
CPT/HCPCS: 36415; 80053; 80061; 82306; 82607; 84439; 84443; 84481; 85025